=== PATIENT | female | born 2000 | race Caucasian/White ===

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

== ENCOUNTER 2019-10-26 22:36 | Emergency (ER) | payer OTHER, SELFPAY ==
[2019-10-26 22:37] VITALS: BP 126/79; PULSE 82; RESP 16; TEMP 37.1; O2SAT 100; BMI 34.7
--- NOTE | 2019-10-26 22:53 | XR_ITS ---
PROCEDURE: XR FOOT LT MIN 3V CLINICAL INDICATION: fell and injured foot COMPARISON: No exams were available for comparison FINDINGS: No fracture or dislocation. No lytic or blastic change. There is normal mineralization. The joint spaces are well-preserved. No significant degenerative/arthritic changes. No erosive changes evident. Other findings:None. IMPRESSION: No acute findings. Dictated by: Sam Montero 10/27/2019 08:11 Electronically signed by Sam Montero in [place] 10/27/2019 08:11
--- NOTE | 2019-10-26 23:18 | PC.NURSE ---
pt going for Xray
--- NOTE | 2019-10-26 23:46 | HMH.EDLOEX ---
ED Disposition Clinical Impression: Ankle sprain and strain Disposition: Home, Self-Care Condition on Discharge: Good Instructions: DI for Foot Sprain Prescriptions: Nabumetone 750 mg PO BID 10 Days #20 tab Transmission Status: Pending to [facility] Referrals: Jason Griffith MD [Primary Care Provider] - - Critical Care Critical Care Time: No Attestation: On 10/26/19, the high probability of a clinically significant, sudden or life threatening deterioration of the following system(s) required my full and direct attention, intervention and personal management. The time I documented below is in addition to time spent performing reported procedures but includes the following listed in this critical care notation. Medical Decision Making - Medical Records Medical records reviewed: Yes: I reviewed the patient's medical records. - Desmond Inquiry Pt receiving controlled substance: No Vital Signs: 10/26/19 22:37 Temperature 98.7 F Temperature Source Oral Pulse Rate [Left Radial] 82 Respiratory Rate 16 Blood Pressure [Right Arm] 126/79 Blood Pressure Mean [Right Arm] 94 Blood Pressure Source [Right Arm] Automatic Cuff Blood Pressure Position [Right Arm] Sitting 02 Sat by Pulse Oximetry 100 Oxygen Delivery Method Room Air - Lab Data Lab results reviewed: Yes: I reviewed the patient's lab results. Orders (Tests/Meds): ORDERS Category Date Time Status XR foot LT min 3V Stat Exams 10/26/19 22:53 Taken - Radiology Data #1 Image(s): Foot/Toes Image Reviewed: Yes I reviewed the patient's radiology image w/the ED provider Preliminary Findings: Normal/NAD Lower Extremity Injury HPI - General Chief Complaint: Extremity Injury, Lower Stated Complaint: AO 10/24 @ 1800 fell, injury to left foot Time Seen by Provider: 10/26/19 23:00 Mode of Arrival: Ambulatory Source of Information: Patient Limitations: No Limitations Description of Symptoms (Recalled from ER Triage Doc. by RN): pt stated she fell last night and injured her left foot. pt has an abrasion to the top of her left great toe and c/o pain when moving toes or putting pressure on said foot. - History of Present Illness HPI Narrative: A pleasant 19-year-old female presents with left foot pain. Apparently earlier today she was walking through her house and her foot got trapped underneath a table leg and it bent backwards. She is complaining of midfoot pain and she has an obvious separation over the first metatarsal. She states her pain is manageable when it is elevated and no weight is on her foot. However when she tries to ambulate it does cause acute pain. She rates his pain at a 4 out of 10 and classifies it as sharp.Patient denies any recent cough or shortness of breath, patient denies any sore throat or headache, patient denies any loss of taste or smell, patient denies any malaise or fatigue, patient denies any abdominal pain nausea vomiting or diarrhea. - Related Data Previous Rx's Medication Instructions Recorded promethazine 12.5 mg tablet 12.5 mg PO Q6H PRN 3 Days #12 tab 06/28/19 Nabumetone 750 mg PO BID 10 Days #20 tab 10/26/19 Allergies Allergy/AdvReac Type Severity Reaction Status Date / Time No Known Allergies Allergy Verified 06/28/19 18:12 [facility] History - Hepatitis A Screen Drug use history?: No High risk sexual behaviors?: No History of sexually transmitted infection?: No Currently employed?: No Childcare worker?: No Do you have indoor plumbing?: Yes Do you have electricity?: Yes Attestation statement:: This patient has been screened for Hepatitis A risk factors. I have reviewed the patient's past medical history: Yes Medical History: Reports:: Asthma Denies:: Diabetes Mellitus Type 1, Diabetes Mellitus Type 2 Other Surgeries: Yes: No Previous Surgery Comment: wisdom teeth, toe - Social History Smoking Status: Never smoker Alcohol Intake: never Occupational Status: employed H
[2019-10-27 00:17] VITALS: BP 131/82; PULSE 81; RESP 16; TEMP 36.8; O2SAT 98
== END 2019-10-27 00:18 | disposition home or self-care (01) ==
PROVIDERS: Emergency Provider Family Medicine; PCP Family Medicine
DX: S93.402A Sprain of unspecified ligament of left ankle, initial encounter (principal); W01.0XXA Fall on same level from slipping, tripping and stumbling without subsequent striking against object, initial encounter; Y92.019 Unspecified place in single-family (private) house as the place of occurrence of the external cause; J45.909 Unspecified asthma, uncomplicated
CPT/HCPCS: 73630; 99282

== ENCOUNTER → 2020-01-23 09:24 | Outpatient (CLI) | payer OTHER, SELFPAY ==
--- NOTE | 2020-01-23 09:32 | US_ITS ---
PROCEDURE: US TRANSVAGINAL CLINICAL INDICATION: IRREGULAR PERIOD COMPARISON: No exams were available for comparison FINDINGS: UTERUS: 4cm x 4cmx 3cm with a combined endometrial thickness of 6.4mm LEFT OVARY: [id number] with a volume of 8.6ml. RIGHT OVARY: [id number] with a volume of 12.7ml. No pelvic mass or abnormal fluid collection IMPRESSION: Unremarkable pelvic ultrasound. Dictated by: Az Huertas MD 01/23/2020 18:24 Az Huertas MD in [place] 01/23/2020 18:24
== END ==
PROVIDERS: PCP Family Medicine; Visit Provider Physician Assistant
DX: N92.6 Irregular menstruation, unspecified (principal)
CPT/HCPCS: 76830

== ENCOUNTER → 2020-05-03 11:28 | Outpatient (CLI) | payer OTHER, SELFPAY ==
--- NOTE | 2020-05-03 11:34 | XR_ITS ---
PROCEDURE: XR KNEE RT 3V CLINICAL INDICATION: RT MEDIAL KNEE PAIN COMPARISON: No exams were available for comparison FINDINGS: No fracture or dislocation. No lytic or blastic change. There is normal mineralization. The joint spaces are well-preserved. No significant degenerative/arthritic changes. No erosive changes evident. Other findings:None. IMPRESSION: No acute findings. Dictated by: Dr. Sundeep Parra MD 05/03/2020 11:56 Dr. Sundeep Parra MD in [place] 05/03/2020 11:56
== END ==
PROVIDERS: PCP Family Medicine; Visit Provider Physician Assistant
DX: M25.561 Pain in right knee (principal)
CPT/HCPCS: 73562

== ENCOUNTER → 2020-05-30 07:42 | Outpatient (CLI) | payer OTHER, SELFPAY ==
--- NOTE | 2020-05-30 07:46 | MR_ITS ---
PROCEDURE: MR KNEE RT WO CON Referring Doctor: Mayda Gamez Patient Age:19Y CLINICAL INDICATION: MEDIAL KNEE PAIN. Medial knee pain pain to the touch. Knee instability. Intermittent knee pain with bending and extending + COMPARISON: No exams were available for comparison TECHNIQUE: Multiplanar multisequence on 1.5 anamaria MR. No IV contrast. FINDINGS: No prominent findings. Minor observations Patellofemoral joint-on the sagittal as well as axial images there is some varying signal noted at the cartilage posterior patella which could reflect some chondromalacia patella or some mild chondral edema. Of for example note slight relative increased signal in cartilage at mid mid and medial aspect of patella on axial image 8, and superior and inferior patella sagittal image 12.. This observation requires clinical correlation required as to significance. Medial compartment: Cartilage seems to be well maintained with no osteochondral defects. Only question borderline slight thinning of cartilage at medial tibial plateau Medial meniscus-relatively small anterior horn of the medial meniscus, but I see no discrete anterior meniscal tear or fragment. Initially question possible subtle truncation of the small body of medial meniscus on coronal T1 weighted images coronal image 17., but this does not appear to be the case on T2 weighted images Lateral compartment: Lateral compartment well maintained. Subtle varying signal at the cartilage at the lateral tibial plateau-nonspecific but could reflect some very mild chondral edema, sagittal image 8 coronal image or 17 Lateral meniscus intact with no meniscal tear. Only note upper normal signal at the posterior meniscal root of lateral meniscus. . Medial collateral ligament intact. No edema here nor overlying the medial joint space. . Lateral collateral ligament intact ACL thin but appears intact. Intact. PCL slightly undulating appearance but I believe intact with upper normal signal at the superior aspect of PCL Minimal joint fluid most evident at central and also noted overlying anterior lateral aspect of lateral compartment. History states pain is medial . IMPRESSION: 1.. The no prominent findings minor observations 2..Mild signal variations of the cartilage posterior patella-could reflect some mild chondral edema here or chondromalacia patella.. . . No discrete osteochondral defects 3. ACL thin but intact. 4..Slight undulation PCL but overall appears intact, with upper normal signal at its superior aspect 5. No discrete meniscal tear: . Medial meniscus with a small anterior horn and slightly small body but I see no discrete tear. . Dictated by: Hari Patton MD 06/04/2020 08:18 Hari Patton MD in [place] 06/04/2020 08:18
== END ==
PROVIDERS: PCP Family Medicine; Visit Provider Physician Assistant
DX: M25.561 Pain in right knee (principal)
CPT/HCPCS: 73721

== ENCOUNTER 2020-06-25 16:48 | Outpatient (RCR) | payer OTHER, SELFPAY ==
--- NOTE | 2020-06-25 17:39 | HMH.PTOPEV ---
PT Outpatient Evaluation Rehab PT Outpatient Evaluation Start: 06/25/20 17:00 Freq: Status: Active Protocol: Document 06/25/20 17:12 LORETA (Rec: 06/25/20 17:39 LORETA [id number]) Electronically Signed By Balwinder Aldana, PT 06/25/20 17:12 Outpatient Therapy Subjective History Subjective History This is the initial Physical Therapy evaluation for Guille Hernandes. Pt is a 20 y/o female referred to PT for c/o R knee pain. Pt reports she began having clicking in her knee middle of last year when she squatted down. Pt report pain did not start until end of last year . Pt does feel like her knee is unstable and woud give out, but also notes that every once in a while it catches or locks. Chief Complaint Pain,Clicks,Swelling,Gives out /Unstable,Weakness Symptom Type Ache,Throb,Sharp,Dull Hip/Knee Eval Gait Observation General Gait Pattern Observation No Deviations/Normal Assistive Device Assistive Devices None / NA Palpation Tenderness right Knee Palpation Finding Tenderness Knee Palpation Overall Comment TTP medial joint line, and post patella medial side MMT Hip Abduction Strength Grade 4 Good Hip Adduction Strength Grade 4 Good Hip Extension Strength Grade 4 Good Hip External Rotation Strength Grade 4 Good Hip Internal Rotation Strength Grade 4 Good Knee Extension Strength Grade 4 Good Knee Flexion Strength Grade 4 Good ROM Hip ROM Reason Not Measured Within Functional Limits Knee ROM Reason Not Measured Within Functional Limits Special Tests Knee Apley Compression Test Negative Right Knee Anterior Drawer Test Negative Right Knee Bounce Home Test Negative Right Knee Anterior Wei Test Negative Right Knee [place] Test Positive Right Patellar Grind Test Positive Right Patella Houghston's Plica Test Negative Right Outpatient Therapy Assessment Impairments Problems/Impairmments Palpation Tenderness,Impaired Strength,Impaired Walking, Impaired Household Care, Impaired Stair Climbing, Impaired Squatting,Impaired Recreational Activities, Impaired Work Activities, Subjective C/O Pain,Impaired
== END 2020-06-25 16:50 | disposition home or self-care (01) ==
LOC: PT 16:48
PROVIDERS: PCP Family Medicine; Visit Provider Physician Assistant
DX: M25.561 Pain in right knee (principal)
CPT/HCPCS: 97110; 97163

== ENCOUNTER → 2020-12-04 20:58 | Outpatient (CLI) | payer OTHER, SELFPAY | PROVIDERS: Visit Provider Nurse Practitioner Family | DX: Z11.52 Encounter for screening for COVID-19 (principal) | CPT/HCPCS: U0003 ==

== ENCOUNTER 2020-12-09 12:55 | Emergency (ER) | payer OTHER, SELFPAY ==
[2020-12-09 13:15] VITALS: BP 132/88; PULSE 94; RESP 21; TEMP 37.4; O2SAT 99; BMI 34.4
--- NOTE | 2020-12-09 13:46 | HMH.EDUTC ---
[facility] [place] Disposition Clinical Impression: Strep throat, COVID-19 virus test result unknown Disposition: Home, Self-Care Condition on Discharge: Good Instructions: DI for Strep Throat, DI for COVID-19 (Suspected or Confirmed ) Additional Instructions: Start antibiotics today be sure to take it as ordered with the full length of time although you should start feeling better in 24-48 hours. Change toothbrush and toothpaste 24-48 hours after starting antibiotics Tylenol or Motrin as needed for fever or pain Encourage fluids, water, Gatorade, Powerade, try cold fluids, popsicles, ice cream will make it feel better You are contagious for 24 hours. Avoid kissing anyone, no eating or drinking after anyone. You are contagious. Follow-up the ER for new or worsening symptoms or no noticeable improvement over the next 24-48 hours. Follow-up with PCP this week. covid swab was sent to lab, call later today for results. self isolate until test results are known to be negative Prescriptions: Azithromycin [Zithromax 250mg tab] 250 mg PO DIRECTED #6 tab Prescription Printed Referrals: Jason Griffith MD [Primary Care Provider] - Forms: Work/School Release Time of Disposition: 13:50 Medical Decision Making - Desmond Inquiry Pt receiving controlled substance: No Orders (Tests/Meds): ORDERS Category Date Time Status Full Resp Panel w/COVID ([facility]) Routine Lab 12/09/20 13:32 Ordered [facility] [place] HPI - General Chief complaint: [facility] Stated complaint: fever, sore throat, headache Time Seen by Provider: 12/09/20 13:46 Mode of Arrival: Ambulatory Source of Information: Patient Limitations: No Limitations - History of Present Illness Provider Complaint: 20 yr old female presents for sore throat,nasal congestion, sinus pressure and headache. - Related Data Previous Rx's Medication Instructions Recorded Azithromycin [Zithromax 250mg 250 mg PO DIRECTED #6 tab 12/09/20 tab] Allergies Allergy/AdvReac Type Severity Reaction Status Date / Time No Known Allergies Allergy Verified 12/04/20 18:18 [facility] History - Hepatitis A Screen Attestation statement:: This patient has been screened for Hepatitis A risk factors. I have reviewed the patient's past medical history: Yes Medical History: Reports:: Asthma Denies:: Diabetes Mellitus Type 1, Diabetes Mellitus Type 2 Other Surgeries: Yes: No Previous Surgery Comment: wisdom teeth, toe - Social History Smoking Status: Never smoker Alcohol Intake: never Occupational Status: employed Housing: house Household Members: family Family Hx:: Non-contributory ROS Obtained: Yes Systems reviewed as appropriate & no additional complaints - Constitutional Constitutional: Reports system reviewed and no additional complaints, except as docu, Reports fatigue, Reports fever(s) - Eyes Eyes: Reports system reviewed and no additional complaints, except as docu, Denies blurry vision - ENT Ears, Nose, Mouth, and Throat: Reports system reviewed and no additional complaints, except as docu, Reports headache(s), Reports nasal congestion, Reports nasal discharge, Reports post nasal drip, Reports sinus pain, Reports sinus pressure, Reports sore throat - Cardiovascular Cardiovascular: Reports system reviewed and no additional complaints, except as docu, Denies chest pain - Respiratory Respiratory: Reports system reviewed and no additional complaints, except as docu, Denies shortness of breath - Gastrointestinal Gastrointestingal: Reports: system reviewed and no additional complaints, except as docu. Denies: abdominal pain - Genitourinary Female Genitourinary: Reports system reviewed and no additional complaints, except as docu - Musculoskeletal Musculoskeletal: Reports system reviewed and no additional complaints, except as docu, Denies joint pain - Integumentary/Breasts Skin/Breast: Reports system reviewed and no additional complaints, except as docu
[2020-12-09 13:50] LABS: UTC Strep Screen (Rapid) Positive (Negative)
[2020-12-09 13:51] VITALS: BP 132/88; PULSE 94; RESP 21; TEMP 37.4; O2SAT 99
[2020-12-09 14:03] LABS: Adenovirus,PCR Not Detected (NotDetected); Bordetella Pertussis Not Detected (NotDetected); Chlamydophila Pneumoniae, PCR Not Detected (NotDetected); Coronavirus 229E Not Detected (NotDetected); Coronavirus NL63 Not Detected (NotDetected); Coronavirus OC43 Not Detected (NotDetected); Coronovirus HKU1,PCR Not Detected (NotDetected); Human Metapneumovirus Not Detected (NotDetected); Influenza A, PCR Not Detected (NotDetected); Influenza AH1, 2009 Not Detected (NotDetected); Influenza AH1, PCR Not Detected (NotDetected); Influenza AH3,PCR Not Detected (NotDetected); Influenza B, PCR Not Detected (NotDetected); Mycoplasma Pneumoniae, PCR Not Detected (NotDetected); Parainfluenza 1, PCR Not Detected (NotDetected); Parainfluenza 2, PCR Not Detected (NotDetected); Parainfluenza 3, PCR Not Detected (NotDetected); Parainfluenza 4, PCR Not Detected (NotDetected); Respiratory Syncytial Virus Not Detected (NotDetected); Rhinovirus/Enterovirus Not Detected (NotDetected)
[2020-12-09 14:47] LABS: Coronavirus 19, PCR Not Detected (NotDetected); Influenza A, PCR Not Detected (NotDetected); Influenza B, PCR Not Detected (NotDetected)
== END 2020-12-09 13:54 | disposition home or self-care (01) ==
PROVIDERS: Emergency Provider Nurse Practitioner Family; PCP Family Medicine
DX: J02.0 Streptococcal pharyngitis (principal)
CPT/HCPCS: 87486; 87581; 87633; 87798; 87880; 99203; G0463; U0003

== ENCOUNTER 2021-01-04 16:52 | Emergency (ER) | payer OTHER, SELFPAY ==
[2021-01-04 18:16] VITALS: BP 124/76; PULSE 100; RESP 18; TEMP 37.1; O2SAT 100; BMI 34.2
--- NOTE | 2021-01-04 18:29 | HMH.EDUTC ---
[facility] [place] Clinical Impression: Viral syndrome Serous otitis media Qualifiers: Chronicity: unspecified Laterality: bilateral Qualified Code(s): H65.93 - Unspecified nonsuppurative otitis media, bilateral Disposition: Home, Self-Care Condition on Discharge: Good Instructions: DI for Viral Syndrome, Dizziness, Nonvertigo Prescriptions: Pseudoephedrine HCl 30 mg PO Q6HP PRN #30 tab PRN Reason: Congestion Transmission Status: Received by [facility] methylPREDNISolone [Medrol] 4 mg PO DIRECTED 6 Days #21 packet Transmission Status: Received by [facility] Ondansetron [Zofran 4mg ODT] 4 mg PO DAILYP PRN #12 tab PRN Reason: Nausea Transmission Status: Received by [facility] Referrals: Jason Griffith MD [Primary Care Provider] - Forms: Work/School Release Time of Disposition: 19:01 Medical Decision Making - Medical Records Medical records reviewed: No: I reviewed the patient's medical records. - Desmond Inquiry Pt receiving controlled substance: No Vital Signs: 01/04/21 18:16 01/04/21 19:03 Temperature 98.8 F 98.8 F Temperature Source Oral Pulse Rate 100 H Pulse Rate [Right Radial] 100 H Respiratory Rate 18 18 Blood Pressure 124/76 Blood Pressure [Right Arm] 124/76 Blood Pressure Mean [Right Arm] 92 Blood Pressure Source [Right Arm] Automatic Cuff Blood Pressure Position [Right Arm] Sitting 02 Sat by Pulse Oximetry 100 Oxygen Delivery Method Room Air Room Air Orders (Tests/Meds): ORDERS Category Date Time Status Covid-19 Nasal PCR ([facility]) Routine Lab 01/04/21 18:45 Received [facility] [place] HPI - General Stated complaint: GIL, nausea, dizzy Time Seen by Provider: 01/04/21 18:29 Mode of Arrival: Ambulatory Source of Information: Patient Limitations: No Limitations Description of Symptoms (Recalled from Triage Doc. by RN): C/O lightheadedness and dizziness associated with nausea, weakness and muscle soreness since approx noon yesterday. HEENT Symptoms (Recalled from RN notes): Yes (GIL, lightheaded, dizzy) Resp Symptoms (Recalled from RN notes): No Skin Symptoms (Recalled from RN notes): No MS Symptoms (Recalled from RN notes): No Functional Status (Recalled from RN notes): n/a - History of Present Illness Provider Complaint: She reports that for the past 2 days she has had lightheadness and dizzines. Her symptoms are worse when she is standing up or moving around a lot. She denies any fever/chills. She has had the first shot of the Pfizer covid vaccine. - Related Data Previous Rx's Medication Instructions Recorded Azithromycin [Zithromax 250mg 250 mg PO DIRECTED #6 tab 12/09/20 tab] Ondansetron [Zofran 4mg ODT] 4 mg PO DAILYP PRN #12 tab 01/04/21 Pseudoephedrine HCl 30 mg PO Q6HP PRN #30 tab 01/04/21 methylPREDNISolone [Medrol] 4 mg PO DIRECTED 6 Days #21 01/04/21 packet Allergies Allergy/AdvReac Type Severity Reaction Status Date / Time No Known Allergies Allergy Verified 12/04/20 18:18 - Worker's Comp Is this a Worker's Comp case?: No [facility] History - Hepatitis A Screen Drug use history?: No High risk sexual behaviors?: No History of sexually transmitted infection?: No Currently employed?: No Childcare worker?: No Do you have indoor plumbing?: Yes Do you have electricity?: Yes Attestation statement:: This patient has been screened for Hepatitis A risk factors. I have reviewed the patient's past medical history: Yes Medical History: Reports:: Asthma Denies:: Diabetes Mellitus Type 1, Diabetes Mellitus Type 2 Other Surgeries: Yes: No Previous Surgery Comment: wisdom teeth, toe - Social History Smoking Status: Never smoker Alcohol Intake: never Occupational Status: employed Housing: house Household Members: family Family Hx:: Non-contributory ROS Obtained: Yes All systems reviewed & no additional complaints - Constitutional Constitutional: Denies chills, Denies fever(s), Reports poor appetite, Rep
[2021-01-04 19:03] VITALS: BP 124/76; PULSE 100; RESP 18; TEMP 37.1; O2SAT 100
[2021-01-05 21:13] LABS: UTC Strep Screen (Rapid) Negative (Negative)
--- NOTE | 2021-01-06 10:00 | PC.NURSE ---
PT NOTIFIED OF POSITIVE COVID TEST RESULTS
== END 2021-01-04 19:06 | disposition home or self-care (01) ==
PROVIDERS: Emergency Provider Nurse Practitioner Family; PCP Family Medicine
DX: U07.1 COVID-19 (principal); H65.93 Unspecified nonsuppurative otitis media, bilateral
CPT/HCPCS: 87880; 99203; G0463; U0003

== ENCOUNTER 2021-01-10 00:28 | Observation (INO) | payer OTHER, SELFPAY ==
[2021-01-10] VITALS (9 sets, daily range): BP systolic 113–153; BP diastolic 66–95; PULSE 63–93; RESP 16–18; TEMP 36.7–36.9; O2SAT 96–99; BMI 34.2; BMI 34.5
--- NOTE | 2021-01-10 00:57 | XR_ITS ---
PROCEDURE INFORMATION: Exam: XR Chest Exam date and time: 01/10/2021 12:57 AM Age: 20 years old Clinical indication: Shortness of breath; Additional info: SOA positive covid TECHNIQUE: Imaging protocol: XR of the chest. Views: 2 views. COMPARISON: CR CXR2V XR chest 2V 07/26/2018 6:45 PM FINDINGS: Lungs: Unremarkable. No consolidation. Pleural spaces: Unremarkable. No pleural effusion. No pneumothorax. Heart/Mediastinum: Unremarkable. No cardiomegaly. Bones/joints: Unremarkable. IMPRESSION: No acute findings.
[2021-01-10 01:04] LABS: Microscopic, Urine URINE MICROSCOPIC (MICROSCOPIC)
[2021-01-10 01:05] LABS: Blood, Urine 3+ (Negative); Glucose,Urine (UA) Negative (Negative); Ketones,Urine 2+ (Negative); Leukocyte Esterase,Urine TRACE (Negative); Nitrate,Urine POSITIVE (Negative); PH,Urine 6.5 (5.0-8.5); Protein,Urine 2+ (Negative); Specific Gravity, Urine 1.025 (1.005-1.030)
[2021-01-10 01:08] LABS: Bilirubin,Urine 3+ (Negative)
[2021-01-10 01:09] LABS: Appearance,Urine Turbid (Clear); Color,Urine BROWN (Yellow)
[2021-01-10 01:10] LABS: Urine Pregnancy, HCG Qual. Negative (Negative)
[2021-01-10 01:16] LABS: Basophils # 0.4 K/mm3 (0-0.2); Basophils % 3.9 % (0.1-2.0); Eosinophils % 0.3 % (0.1-12.0); Hematocrit 40.8 % (37.0-47.0); Hemoglobin 13.5 g/dL (12.2-16.2); Lymphocytes # 6.9 K/mm3 (0.7-4.5); Lymphocytes % 70.6 % (10-50); Mean Corpuscular HGB Conc 33.2 g/dL (31.8-35.4); Mean Corpuscular Hemoglobin 28.3 pg (27.0-31.2); Mean Corpuscular Volume 85.3 fl (81-99); Mean Platelet Volume 9.1 fl (7.4-10.4); Monocytes # 0.3 K/mm3 (0.1-1.0); Monocytes % 2.9 % (1.7-9.3); Neutrophils # 2.2 K/mm3 (1.8-7.8); Neutrophils % 22.3 % (37.0-80.0); Platelet Count 180 K/mm3 (142-424); Red Blood Count 4.78 M/mm3 (4.20-5.40); Red Cell Distribution Width 15.3 % (11.5-17.5); White Blood Count 9.8 K/mm3 (4.8-10.8)
[2021-01-10 01:28] LABS: Chloride 102 mmol/L (98-107); Potassium 3.4 mmoL/L (3.5-5.1); Sodium 136 mmol/L (136-145)
[2021-01-10 01:29] LABS: Amorphous Sediment,Urine 1+ /lpf; Bacteria,Urine 1+ /lpf; Mucus,Urine 1+ /lpf; Squamous Epithelial Cell,Urine Occasional #/hpf (0-5); WBC,Urine Occasional #/hpf (0-3)
[2021-01-10 01:30] LABS: Blood Urea Nitrogen 10 mg/dl (7-17); Creatinine Clearance Estimated 159 mL/min (50-200); Estimated Glomerular Filt Rate 79 ml/min (>60); GFR (African American) 96 ML/MIN (>60)
[2021-01-10 01:31] LABS: Alanine Aminotransferase 480 U/L (12-78); Albumin Level 3.9 g/dl (3.5-5.0); Albumin/Globulin Ratio 0.9 (1.1-1.8); Alkaline Phosphatase 187 U/L (38-126); Anion Gap 15.4 mEq/L (5-15); Aspartate Amino Transferase 424 U/L (14-36); Bilirubin,Total 4.4 mg/dl (0.2-1.3); Calcium 9.1 mg/dl (8.4-10.2); Carbon Dioxide 22 mmol/L (22.0-30.0); Globulin 4.2 g/dL (1.3-3.2); Glucose 98 mg/dl (74-100); MANUAL DIFFERENTIAL MANUAL DIFFERENTIAL (MANUAL DIFF); Total Protein,Serum 8.1 g/dl (6.3-8.2)
[2021-01-10 01:36] LABS: C-Reactive Protein 18.5 mg/L (0-4)
[2021-01-10 02:06] LABS: Erythrocyte Sedimentation Rate 63 mm/hr (0-20)
[2021-01-10 02:17] LABS: Procalcitonin 0.476 ng/mL (0.0-2.0)
--- NOTE | 2021-01-10 02:53 | HMH.EDURI ---
ED Disposition Clinical Impression: COVID-19, Elevated liver enzymes Disposition: Admitted as Observation Condition on Discharge: Good Referrals: Jason Griffith MD [Primary Care Provider] - - Critical Care Critical Care Time: No Attestation: On 01/10/21, the high probability of a clinically significant, sudden or life threatening deterioration of the following system(s) required my full and direct attention, intervention and personal management. The time I documented below is in addition to time spent performing reported procedures but includes the following listed in this critical care notation. Medical Decision Making - Medical Records Medical records reviewed: Yes: I reviewed the patient's medical records. - Desmond Inquiry Pt receiving controlled substance: No Vital Signs: 01/10/21 00:45 Temperature 98.0 F Temperature Source Oral Pulse Rate [Right] 93 H Respiratory Rate 18 Blood Pressure [Right Arm] 117/72 Blood Pressure Mean [Right Arm] 87 Blood Pressure Source [Right Arm] Automatic Cuff Blood Pressure Position [Right Arm] Supine 02 Sat by Pulse Oximetry 99 Oxygen Delivery Method Room Air - Lab Data Lab results reviewed: Yes: I reviewed the patient's lab results. Lab Results 01/10/21 00:51: Urine Color Brown, Urine Appearance Turbid, Urine pH 6.5, Ur Specific [place] 1.025, Urine Protein 2+, Urine Glucose (UA) Negative, Urine Ketones 2+, Urine Blood 3+, Urine Nitrate Positive, Urine Bilirubin 3+ A, Urine Urobilinogen 4.0, Ur Leukocyte Esterase Trace, Urine RBC 3-5, Urine WBC Occasional, Ur Squamous Epith Cells Occasional, Amorphous Sediment 1+, Urine Bacteria 1+, Urine Mucus 1+ 01/10/21 00:51: Urine HCG, Qual Negative 01/10/21 01:06: WBC 9.8, RBC 4.78, Hgb 13.5, Hct 40.8, MCV 85.3, MCH 28.3, MCHC 33.2, RDW 15.3, Plt Count 180, MPV 9.1, Neut % (Auto) 22.3 L, Lymph % (Auto) 70.6 H, [place] % (Auto) 2.9, Eos % (Auto) 0.3, Baso % (Auto) 3.9 H, Neut # (Auto) 2.2, Lymph # (Auto) 6.9 H, [place] # (Auto) 0.3, Eos # (Auto) 0.0, Baso # (Auto) 0.4 H, Total Counted 100, Neutrophils % (Manual) 41 L, Lymphocytes % (Manual) 59 H, Platelet Estimate Normal, RBC Morphology Normal, ESR 63 H 01/10/21 01:06: Sodium 136, Potassium 3.4 L, Chloride 102, Carbon Dioxide 22, Anion Gap 15.4 H, BUN 10, Creatinine 0.90, Estimated Creat Clear 159, Estimated GFR 79, Est GFR ( Amer) 96, Glucose 98, Calcium 9.1, Total Bilirubin 4.4 H, AST 424 H*, ALT 480 H*, Alkaline Phosphatase 187 H, C-Reactive Protein 18.5 H, Total Protein 8.1, Albumin 3.9, Globulin 4.2 H, Albumin/Globulin Ratio 0.9 L, Procalcitonin 0.476 Result diagrams: 01/10/21 01:06 01/10/21 01:06 Orders (Tests/Meds): ED MEDICATIONS Generic Name Dose Route Start Last Admin Trade Name Freq PRN Reason Stop Dose Admin Sodium Chloride 1,000 mls @ 999 mls/hr 01/10/21 01:00 01/10/21 01:09 Sod Chlor 0.9% 1000ml Bag IV 01/10/21 02:00 999 mls/hr .Q1H1M BOOM Administration Sodium Chloride 1,000 mls @ 999 mls/hr 01/10/21 03:15 01/10/21 03:16 Sod Chlor 0.9% 1000ml Bag IV 01/10/21 04:15 999 mls/hr .Q1H1M BOOM Administration Discontinued Medications Generic Name Dose Route Start Last Admin Trade Name Freq PRN Reason Stop Dose Admin Dexamethasone Sodium Phosphate 10 mg 01/10/21 01:10 01/10/21 01:12 Dexamethasone 4mg/Ml 5ml Mdv IV 01/10/21 01:11 10 mg ONCE ONE Administration Ketorolac Tromethamine 30 mg 01/10/21 00:57 01/10/21 01:09 Ketorolac 30mg/Ml Vial IV 01/10/21 00:58 30 mg ONCE ONE Administration Ondansetron HCl 4 mg 01/10/21 00:57 01/10/21 01:09 Ondansetron 4mg/2ml Vial IV 01/10/21 00:58 4 mg ONCE ONE Administration ORDERS Category Date Time Status Hepatitis Panel (4) Stat Lab 01/10/21 03:36 Ordered Urine Culture Stat Micro 01/10/21 00:51 Received - Radiology Data #1 Image(s): Chest Image Reviewed: Yes I have reviewed radiologist's interpretation Preliminary Findings: Normal/NAD - Physician C
[2021-01-10 03:07] LABS: Lymphocytes % 59 % (10-50); Neutrophils % 41 % (42-76); Platelet Estimate Normal; RBC Morphology Normal; Total Cells Counted 100
[2021-01-10 04:20] LABS: Coronavirus 19 IgG Antibody Positive (Negative); Coronavirus 19 IgM Antibody Negative (Negative)
[2021-01-10 04:29] LABS: Prothrombin Time 11.8 seconds (10.1-12.5)
--- NOTE | 2021-01-10 04:55 | PC.NURSE ---
PT ARRIVED TO FLOOR VIA W/C FROM ED W/STAFF AT [id number]
[2021-01-10 07:08] LABS: Basophils # 0.2 K/mm3 (0-0.2); Basophils % 2.5 % (0.1-2.0); Hematocrit 39.8 % (37.0-47.0); Hemoglobin 12.8 g/dL (12.2-16.2); Lymphocytes # 5.8 K/mm3 (0.7-4.5); Lymphocytes % 66.1 % (10-50); Mean Corpuscular HGB Conc 32.2 g/dL (31.8-35.4); Mean Corpuscular Hemoglobin 27.7 pg (27.0-31.2); Mean Corpuscular Volume 86.1 fl (81-99); Mean Platelet Volume 9.7 fl (7.4-10.4); Monocytes # 0.1 K/mm3 (0.1-1.0); Monocytes % 1.2 % (1.7-9.3); Neutrophils # 2.7 K/mm3 (1.8-7.8); Neutrophils % 30.2 % (37.0-80.0); Platelet Count 185 K/mm3 (142-424); Red Blood Count 4.63 M/mm3 (4.20-5.40); Red Cell Distribution Width 15.3 % (11.5-17.5); White Blood Count 8.8 K/mm3 (4.8-10.8)
[2021-01-10 07:19] LABS: Alanine Aminotransferase 486 U/L (12-78); Albumin Level 3.8 g/dl (3.5-5.0); Albumin/Globulin Ratio 0.9 (1.1-1.8); Alkaline Phosphatase 171 U/L (38-126); Anion Gap 16.1 mEq/L (5-15); Aspartate Amino Transferase 431 U/L (14-36); Bilirubin,Total 4.3 mg/dl (0.2-1.3); Blood Urea Nitrogen 9 mg/dl (7-17); Calcium 8.6 mg/dl (8.4-10.2); Carbon Dioxide 21 mmol/L (22.0-30.0); Chloride 106 mmol/L (98-107); Creatinine Clearance Estimated 182 mL/min (50-200); Estimated Glomerular Filt Rate 91 ml/min (>60); GFR (African American) 110 ML/MIN (>60); Globulin 4.2 g/dL (1.3-3.2); Glucose 124 mg/dl (74-100); Potassium 4.1 mmoL/L (3.5-5.1); Sodium 139 mmol/L (136-145)
--- NOTE | 2021-01-10 07:20 | HMH.PHAVTE ---
[facility] Pharmacy VTE Monitoring - Patient Demographics Admission date: 01/10/21 Report Date: 01/10/21 Time: 07:20 Allergies/Adverse Reactions: Patient Allergies No Known Allergies Allergy (Verified 12/04/20 18:18) Height: 1.73 m Weight: 103.419 kg Patient Problems: Current Active Problems COVID-19 (Acute) Elevated liver enzymes (Acute) - VTE Risk Labs: VTE Related Lab Results Hgb 12.8 g/dL (12.2-16.2) 01/10/21 06:14 Hct 39.8 % (37.0-47.0) 01/10/21 06:14 Plt Count 185 K/mm3 (142-424) 01/10/21 06:14 PT 11.8 seconds (10.1-12.5) 01/10/21 01:06 INR 1.00 (0.9-1.1) 01/10/21 01:06 BUN 10 mg/dl (7-17) 01/10/21 01:06 Creatinine 0.90 mg/dl (0.52-1.04) 01/10/21 01:06 Estimated Creat Clear 159 mL/min (50-200) 01/10/21 01:06 Was VTE Risk Assessment Performed: Yes VTE Risk Level: Very Low Risk Clinical Trial Participant: No - Prophylaxis VTE Prophylaxis Ordered?: Yes Types of VTE Prophylaxis: TEDS Knee High
--- NOTE | 2021-01-10 07:40 | HMH.PHAINT ---
MEDICATION RECONCILIATION COMPLETED USING PHARMACY FILL HISTORY AND RECENT OFFICE VISIT.
--- NOTE | 2021-01-10 14:31 | P.PN_ITS ---
Internal Medicine - PN: Subj *Date: 01/10/21 *Time: 14:31 Interval history: Pt admitted with Covid and elevated LFTs and dehydration due to vomiting. She feels much today and is tolerating a regular diet. She is anxious to go home. Exam Vital signs and Labs for Last 24 Hours: Temp Pulse Resp BP Pulse Ox 98.4 F 69 18 129/70 98 01/10/21 12:00 01/10/21 12:00 01/10/21 12:00 01/10/21 12:00 01/10/21 12:00 Laboratory Results - last 24 hr 01/10/21 00:51: Urine Color Brown, Urine Appearance Turbid, Urine pH 6.5, Ur Specific [place] 1.025, Urine Protein 2+, Urine Glucose (UA) Negative, Urine Ketones 2+, Urine Blood 3+, Urine Nitrate Positive, Urine Bilirubin 3+ A, Urine Urobilinogen 4.0, Ur Leukocyte Esterase Trace, Urine RBC 3-5, Urine WBC Occasional, Ur Squamous Epith Cells Occasional, Amorphous Sediment 1+, Urine Bacteria 1+, Urine Mucus 1+ 01/10/21 00:51: Urine HCG, Qual Negative 01/10/21 01:06: WBC 9.8, RBC 4.78, Hgb 13.5, Hct 40.8, MCV 85.3, MCH 28.3, MCHC 33.2, RDW 15.3, Plt Count 180, MPV 9.1, Neut % (Auto) 22.3 L, Lymph % (Auto) 70.6 H, [place] % (Auto) 2.9, Eos % (Auto) 0.3, Baso % (Auto) 3.9 H, Neut # (Auto) 2.2, Lymph # (Auto) 6.9 H, [place] # (Auto) 0.3, Eos # (Auto) 0.0, Baso # (Auto) 0.4 H, Total Counted 100, Neutrophils % (Manual) 41 L, Lymphocytes % (Manual) 59 H, Platelet Estimate Normal, RBC Morphology Normal, ESR 63 H 01/10/21 01:06: Sodium 136, Potassium 3.4 L, Chloride 102, Carbon Dioxide 22, Anion Gap 15.4 H, BUN 10, Creatinine 0.90, Estimated Creat Clear 159, Estimated GFR 79, Est GFR ( Amer) 96, Glucose 98, Calcium 9.1, Total Bilirubin 4.4 H, AST 424 H*, ALT 480 H*, Alkaline Phosphatase 187 H, C-Reactive Protein 18.5 H , Total Protein 8.1, Albumin 3.9, Globulin 4.2 H, Albumin/Globulin Ratio 0.9 L, Procalcitonin 0.476 01/10/21 01:06: SARS-CoV-2 IgG Ab (Rapid) Positive A, SARS-CoV-2 IgM Ab (Rapid) Negative 01/10/21 01:06: PT 11.8, INR 1.00 01/10/21 06:14: WBC 8.8, RBC 4.63, Hgb 12.8, Hct 39.8, MCV 86.1, MCH 27.7, MCHC 32.2, RDW 15.3, Plt Count 185, MPV 9.7, Neut % (Auto) 30.2 L, Lymph % (Auto) 66.1 H, [place] % (Auto) 1.2 L, Eos % (Auto) 0.0 L, Baso % (Auto) 2.5 H, Neut # (Auto) 2.7, Lymph # (Auto) 5.8 H, [place] # (Auto) 0.1, Eos # (Auto) 0.0, Baso # (Auto) 0.2 01/10/21 06:14: Sodium 139, Potassium 4.1 D, Chloride 106, Carbon Dioxide 21 L, Anion Gap 16.1 H, BUN 9, Creatinine 0.80, Estimated Creat Clear 182, Estimated GFR 91, Est GFR ( Amer) 110, Glucose 124 H D, Calcium 8.6, Magnesium 2.0, Total Bilirubin 4.3 H, AST 431 H*, ALT 486 H*, Alkaline Phosphatase 171 H, Total Protein 8.0, Albumin 3.8, Globulin 4.2 H, Albumin/Globulin Ratio 0.9 L I & O for Last 24 hours: Intake & Output 01/07/21 01/08/21 01/09/21 01/10/21 23:59 23:59 23:59 23:59 Intake Total 2119 Balance 2119 Weight 228 lb - Constitutional no acute distress - *Routine Abdominal Exam Present: soft, normoactive bowel sounds, tenderness (minimal RUQ). Absent: guarding, rigid Assessment and Plan (1) Vomiting Status: Acute Category: Medical Code(s): R11.10 - Vomiting, unspecified (2) COVID-19 Status: Acute Category: Medical Code(s): U07.1 - COVID-19 (3) Elevated liver enzymes Status: Acute Category: Medical Code(s): R74.8 - Abnormal levels of other serum enzymes - Assessment and plan all Dx Assessment and Plan for all problems:: Plan discharge home with [place], recheck CMP on 01/14
--- NOTE | 2021-01-10 14:53 | HMH.HPDC ---
General - General Admission date:: 01/10/21 Discharge date: 01/10/21 *Admission Date: 01/10/21 *Chief complaint: vomiting, abdominal pain *History of present illness: Ms. Hernandes is a 20-year-old female with a history of allergies. She states she has had one Covid vaccine back at the first of the year, but never did get her second vaccine. She states she began feeling poorly last week. She had vomiting and nausea and felt extremely weak. She went to the urgent treatment center on 01/04/2021 due to feeling poorly and tested positive for Covid. She was started on Sudafed and a Medrol Dosepak along with Zofran. She states she continued to feel poorly and would get lightheaded and dizzy. She denied any fever. She states she was worried she was getting dehydrated, which is why she presented to the emergency room today. She has had a mild cough but no other respiratory symptoms. Her potassium was slightly low but her liver function tests were elevated. Her bilirubin was 4.4 her, her AST was 424, and her ALT was 480. She was admitted for further evaluation and treatment of her elevated liver tests. Of note, her urine also appeared to show urinary tract infection. She was started on IV fluids and Zofran. [facility] History I have reviewed the patient's past medical history: Yes Medical History: Reports:: Asthma Denies:: Cancer, Diabetes Mellitus Type 1, Diabetes Mellitus Type 2, MRSA *Have you ever received a pneumonia vaccine?: Yes *Have you received a flu vaccine this season?: Yes Other Surgeries: Yes: No Previous Surgery - *Social History Last grade of school completed: Some college Smoking Status: Never smoker Alcohol Intake: current Alcohol Intake Frequency:: holidays/special occasions only *Occupational Status:: employed Housing: house Household Members: family *Travel in the last 8 weeks: None Family Hx:: No significant family history Review of Systems - Constitutional Reports fatigue, Reports malaise, Reports weakness, Denies fever(s) - Eyes Denies blurry vision, Denies double vision - ENT Reports nasal congestion, Denies sore throat - *Cardiovascular Denies chest pain, Denies shortness of breath - *Respiratory Reports cough, Denies chest congestion, Denies shortness of breath - *Gastrointestinal Reports abdominal pain, Reports nausea, Reports vomiting, Denies loose stools - *Genitourinary Denies difficulty urinating, Denies painful urination - *Musculoskeletal Denies joint pain, Denies body aches - *Neurologic Reports weakness, Denies localized weakness, Denies headache(s), Denies seizure-like activity Exam Vital signs and Labs for Last 24 Hours: Temp Pulse Resp BP Pulse Ox 98.4 F 69 18 129/70 98 01/10/21 12:00 01/10/21 12:00 01/10/21 12:00 01/10/21 12:00 01/10/21 12:00 Laboratory Results - last 24 hr 01/10/21 00:51: Urine Color Brown, Urine Appearance Turbid, Urine pH 6.5, Ur Specific [place] 1.025, Urine Protein 2+, Urine Glucose (UA) Negative, Urine Ketones 2+, Urine Blood 3+, Urine Nitrate Positive, Urine Bilirubin 3+ A, Urine Urobilinogen 4.0, Ur Leukocyte Esterase Trace, Urine RBC 3-5, Urine WBC Occasional, Ur Squamous Epith Cells Occasional, Amorphous Sediment 1+, Urine Bacteria 1+, Urine Mucus 1+ 01/10/21 00:51: Urine HCG, Qual Negative 01/10/21 01:06: WBC 9.8, RBC 4.78, Hgb 13.5, Hct 40.8, MCV 85.3, MCH 28.3, MCHC 33.2, RDW 15.3, Plt Count 180, MPV 9.1, Neut % (Auto) 22.3 L, Lymph % (Auto) 70.6 H, [place] % (Auto) 2.9, Eos % (Auto) 0.3, Baso % (Auto) 3.9 H, Neut # (Auto) 2.2, Lymph # (Auto) 6.9 H, [place] # (Auto) 0.3, Eos # (Auto) 0.0, Baso # (Auto) 0.4 H, Total Counted 100, Neutrophils % (Manual) 41 L, Lymphocytes % (Manual) 59 H, Platelet Estimate Normal, RBC Morphology Normal, ESR 63 H 01/10/21 01:06: Sodium 136, Potassium 3.4 L, Chloride 102, Carbon Dioxide 22, Anion Gap 15.4 H, BUN 10, Creatinine 0.90, Estimated Creat Clear 159, Estimated GFR 79, Est GFR ( Amer) 96, Glucose 98, Matthew
[2021-01-11 12:19] LABS: Hep A Ab, IgM Negative (Negative); Hepatitis B Core Antibody IgM Negative (Negative); Hepatitis B Surface Antigen Negative (Negative); Hepatitis C Antibody <0.1 s/co ratio (0.0-0.9)
== END 2021-01-10 15:10 | disposition home or self-care (01) ==
LOC: ER 03:51 → 2ND 04:50
PROVIDERS: Admitting Provider Family Medicine; Emergency Provider Emergency Medicine; PCP Family Medicine; Visit Provider Family Medicine
DX: U07.1 COVID-19 (principal); R11.10 Vomiting, unspecified; R74.8 Abnormal levels of other serum enzymes
CPT/HCPCS: 71046; 80053; 80074; 81001; 81025; 83735; 84145; 85007; 85025; 85610; 85651; 86140; 86328; 87086; 87088; 87186; 96365; 96367; 96375; 99284; G0378; J2405

== ENCOUNTER → 2021-01-14 10:24 | Outpatient (CLI) | payer OTHER, SELFPAY ==
[2021-01-14 12:28] LABS: Alanine Aminotransferase 412 U/L (12-78); Albumin/Globulin Ratio 0.8 (1.1-1.8); Alkaline Phosphatase 237 U/L (38-126); Anion Gap 15.9 mEq/L (5-15); Aspartate Amino Transferase 308 U/L (14-36); Bilirubin,Total 2.2 mg/dl (0.2-1.3); Blood Urea Nitrogen 7 mg/dl (7-17); Calcium 9.3 mg/dl (8.4-10.2); Carbon Dioxide 25 mmol/L (22.0-30.0); Chloride 103 mmol/L (98-107); Estimated Glomerular Filt Rate 91 ml/min (>60); GFR (African American) 110 ML/MIN (>60); Globulin 4.9 g/dL (1.3-3.2); Glucose 123 mg/dl (74-100); Potassium 3.9 mmoL/L (3.5-5.1); Sodium 140 mmol/L (136-145); Total Protein,Serum 8.9 g/dl (6.3-8.2)
== END ==
PROVIDERS: Visit Provider Family Medicine
DX: R74.8 Abnormal levels of other serum enzymes (principal)
CPT/HCPCS: 36415; 80053

== ENCOUNTER → 2021-05-04 17:23 | Outpatient (CLI) | payer OTHER, SELFPAY | PROVIDERS: PCP Family Medicine; Visit Provider Nurse Practitioner Family | DX: Z20.822 Contact with and (suspected) exposure to COVID-19 (principal) | CPT/HCPCS: C9803; U0003; U0005 ==

== ENCOUNTER 2021-05-07 17:20 | Emergency (ER) | payer OTHER, SELFPAY ==
[2021-05-07 18:05] VITALS: BP 136/89; PULSE 89; RESP 18; TEMP 37; O2SAT 99; BMI 34.2
[2021-05-07 18:34] LABS: UTC Strep Screen (Rapid) Positive (Negative)
--- NOTE | 2021-05-07 18:34 | HMH.EDUTC ---
[facility] [place] Disposition Clinical Impression: Strep throat Disposition: Home, Self-Care Condition on Discharge: Good Instructions: DI for Strep Throat, Strep Throat Additional Instructions: *Monitor Temp, Over the counter Motrin or Tylenol as directed/as needed Tylenol every 4 hours and Motrin every 6 hours (as long as your family doctor has told you that you can take it) for fever or pain. and straight to ER if unable to lower temp less than 101.0 after medication given *Warm salt water gargles may help to soothe the throat *Throat Lozenges *Warm fluids like tea with honey may help to soothe the throat *Sleep elevated *Humidifier/Vaporizer *If you did not take Penicillin shot or was unable to, start taking antibiotic immediately and make sure that you take it for the FULL length of time although you should start to feel better in 24-48 hours *change toothbrush and toothpaste 24-48 hours after starting to take antibiotics so you do not reinfect yourself Monitor Temp. Tylenol and/or Ibuprofen as needed. ER if fever is no less than 101 despite alternating Tylenol and Ibuprofen * Encourage fluids, water, Gatorade, powerade, pedialyte if infant/toddler/or child *Cold fluids, popsicles and ice cream may feel good on his throat Follow up IMMEDIATELY for new or worsening symptoms or no Noticeable improvement over the next 48-72 hours. 911 for difficulty breathing or swallowing Prescriptions: Amoxicillin [Amoxicillin 875MG Tab] 875 mg PO Q12H #20 tab Transmission Status: Pending to [facility] Fluticasone Propionate [Flonase 50mcg nasal spray 16gm] 1 spr NS DAILY #1 each Transmission Status: Pending to [facility] methylPREDNISolone [Medrol 4mg tab] 4 mg PO DIRECTED #21 tab Transmission Status: Pending to [facility] Referrals: Jason Griffith MD [Primary Care Provider] - As needed Forms: Work/School Release Time of Disposition: 18:44 Medical Decision Making - Desmond Inquiry Pt receiving controlled substance: No Desmond was queried for this patient: No Vital Signs: 05/07/21 18:05 Temperature 98.6 F Temperature Source Oral Pulse Rate [Right Brachial] 89 Respiratory Rate 18 Blood Pressure [Right Arm] 136/89 Blood Pressure Mean [Right Arm] 104 Blood Pressure Source [Right Arm] Automatic Cuff Blood Pressure Position [Right Arm] Sitting 02 Sat by Pulse Oximetry 99 Oxygen Delivery Method Room Air - Lab Data Lab results reviewed: Yes: I reviewed the patient's lab results. [facility] [place] HPI - General Stated complaint: fever,sore throat, GIL,Congestion Time Seen by Provider: 05/07/21 18:34 Mode of Arrival: Ambulatory Source of Information: Patient Limitations: No Limitations Description of Symptoms (Recalled from Triage Doc. by RN): PATIENT C/O COUGH, SORE THROAT, HEADACHE, EAR PAIN, INTERMITTEN FEVER, CONGESTION AND RUNNY NOSE THAT STARTED THURSDAY HEENT Symptoms (Recalled from RN notes): Yes Resp Symptoms (Recalled from RN notes): Yes Skin Symptoms (Recalled from RN notes): No MS Symptoms (Recalled from RN notes): No Functional Status (Recalled from RN notes): WNL - History of Present Illness Provider Complaint: Patient states that she has been having sore throat, pressure and pain in her ears, headache fever earlier and cough state that she feels like she has cotton stuck in her ears States that this evening they was popping and cracking and her throat was hurting worse so she came in to get checked out - Related Data Previous Rx's Medication Instructions Recorded Amoxicillin [Amoxicillin 875MG 875 mg PO Q12H #20 tab 05/07/21 Tab] Fluticasone Propionate [Flonase 1 spr NS DAILY #1 each 05/07/21 50mcg nasal spray 16gm] methylPREDNISolone [Medrol 4mg 4 mg PO DIRECTED #21 tab 05/07/21 tab] Allergies Allergy/AdvReac Type Severity Reaction Status Date / Time No Known Allergies Allergy Verified 12/04/20 18:18 - Worker's Comp Is this a Worker's Comp case?: No
[2021-05-07 18:47] VITALS: BP 136/89; PULSE 89; RESP 18; TEMP 37; O2SAT 99
== END 2021-05-07 18:52 | disposition home or self-care (01) ==
PROVIDERS: Emergency Provider Nurse Practitioner; PCP Family Medicine
DX: J02.0 Streptococcal pharyngitis (principal)
CPT/HCPCS: 87880; 99202; G0463

== ENCOUNTER → 2021-05-20 10:34 | Outpatient (CLI) | payer OTHER, SELFPAY | PROVIDERS: PCP Family Medicine; Visit Provider Nurse Practitioner | DX: Z20.822 Contact with and (suspected) exposure to COVID-19 (principal) | CPT/HCPCS: C9803; U0003; U0005 ==

== ENCOUNTER → 2021-05-22 19:41 | Outpatient (CLI) | payer OTHER, SELFPAY | PROVIDERS: Visit Provider Nurse Practitioner Family | DX: U07.1 COVID-19 (principal) | CPT/HCPCS: C9803; U0003; U0005 ==

== ENCOUNTER 2021-08-04 20:12 | Emergency (ER) | payer OTHER, SELFPAY ==
[2021-08-04 20:15] VITALS: BP 141/71; PULSE 85; RESP 19; TEMP 36.8; O2SAT 98; BMI 35.9
--- NOTE | 2021-08-04 20:29 | HMH.EDUTC ---
[facility] [place] Disposition Clinical Impression: URI (upper respiratory infection) Qualifiers: URI type: unspecified viral URI Qualified Code(s): J06.9 - Acute upper respiratory infection, unspecified Disposition: Home, Self-Care Condition on Discharge: Good Instructions: DI for Viral Upper Respiratory Infection -- Adult Additional Instructions: No sign of a bacterial infection. Likely viral. Viruses can take 7-14 days to run their course. Nasal saline and bulb syringe or nose Celia to remove nasal drainage to help with nasal congestion. Hard to eat, drink, sleep with nasal congestion so important to keep this cleaned out. Monitor temp. Tylenol or Motrin as needed for pain or fever Encourage fluids, water, Gatorade, Powerade, Pedialyte if /toddler/child Warm salt water gargles Warm fluids Sore throat lozenges Sleep elevated Humidifier/vaporizer Follow-up immediately for new or worsening symptoms or no noticeable improvement over the next 48-72 hours. Referrals: Jason Griffith MD [Primary Care Provider] - Forms: Work/School Release Time of Disposition: 20:53 Medical Decision Making - Desmond Inquiry Pt receiving controlled substance: No Vital Signs: 08/04/21 20:15 Temperature 98.3 F Temperature Source Oral Pulse Rate [Right Brachial] 85 Respiratory Rate 19 Blood Pressure [Right Arm] 141/71 H Blood Pressure Mean [Right Arm] 94 Blood Pressure Source [Right Arm] Automatic Cuff Blood Pressure Position [Right Arm] Sitting 02 Sat by Pulse Oximetry 98 Oxygen Delivery Method Room Air - Lab Data Lab Results 08/04/21 20:20: Group A Strep Rapid Negative 08/04/21 20:23: Influenza Type A Ag Negative, Influenza Type B Ag Negative Orders (Tests/Meds): ORDERS Category Date Time Status Strep Screen Confirmation Stat Micro 08/04/21 20:20 Received [facility] [place] HPI - General Chief complaint: Urgent Treatment Center Stated complaint: sore throat,cough Time Seen by Provider: 08/04/21 20:29 Mode of Arrival: Ambulatory Source of Information: Patient Limitations: No Limitations Description of Symptoms (Recalled from Triage Doc. by RN): PATIENT C/O SORE THROAT, COUGH, CHILLS AND BODY ACHES X 3 DAYS HEENT Symptoms (Recalled from RN notes): Yes Resp Symptoms (Recalled from RN notes): Yes Skin Symptoms (Recalled from RN notes): No MS Symptoms (Recalled from RN notes): Yes Functional Status (Recalled from RN notes): WNL - History of Present Illness Provider Complaint: 21 yr old female presents for sore throat,cough,body aches and fever - Related Data Previous Rx's Medication Instructions Recorded Fluticasone Propionate [Flonase 1 spr NS DAILY #1 each 05/07/21 50mcg nasal spray 16gm] Allergies Allergy/AdvReac Type Severity Reaction Status Date / Time No Known Allergies Allergy Verified 05/22/21 18:48 - Worker's Comp Is this a Worker's Comp case?: No [facility] History - Hepatitis A Screen Drug use history?: No High risk sexual behaviors?: No History of sexually transmitted infection?: No Currently employed?: No Childcare worker?: No Do you have indoor plumbing?: Yes Do you have electricity?: Yes Attestation statement:: This patient has been screened for Hepatitis A risk factors. I have reviewed the patient's past medical history: Yes Medical History: Reports:: Asthma Denies:: Cancer, Diabetes Mellitus Type 1, Diabetes Mellitus Type 2, MRSA Other Surgeries: Yes: No Previous Surgery Comment: wisdom teeth, toe - Social History Smoking Status: Never smoker Alcohol Intake: current Alcohol Intake Frequency:: holidays/special occasions only Occupational Status: employed Housing: house Household Members: family Family Hx:: No significant family history ROS Obtained: Yes Systems reviewed as appropriate & no additional complaints - Constitutional Constitutional: Reports system reviewed and no additional complaints, except as docu, Reports body ache, Reports chills, Reports fever(s) - Eyes
[2021-08-04 20:42] LABS: UTC Influenza A Antigen Negative (Negative); UTC Influenza B Antigen Negative (Negative)
[2021-08-04 20:44] LABS: Strep Scrn Group A (Rapid) Negative (Negative)
[2021-08-04 20:55] VITALS: BP 141/71; PULSE 85; RESP 19; TEMP 36.8; O2SAT 98
== END 2021-08-04 21:00 | disposition home or self-care (01) ==
PROVIDERS: Emergency Provider Nurse Practitioner Family; PCP Family Medicine
DX: J06.9 Acute upper respiratory infection, unspecified (principal); J45.909 Unspecified asthma, uncomplicated; Z79.51 Long term (current) use of inhaled steroids
CPT/HCPCS: 87430; 87804; 99212; G0463

== ENCOUNTER 2021-09-23 11:18 | Emergency (ER) | payer OTHER, SELFPAY ==
[2021-09-23 13:12] LABS: Adenovirus,PCR Not Detected (NotDetected); Bordetella Pertussis Not Detected (NotDetected); Chlamydophila Pneumoniae, PCR Not Detected (NotDetected); Coronavirus 19, PCR Not Detected (NotDetected); Coronavirus 229E Not Detected (NotDetected); Coronavirus NL63 Not Detected (NotDetected); Coronavirus OC43 Not Detected (NotDetected); Coronovirus HKU1,PCR Not Detected (NotDetected); Influenza A, PCR Not Detected (NotDetected); Influenza AH1, 2009 Not Detected (NotDetected); Influenza AH1, PCR Not Detected (NotDetected); Influenza AH3,PCR Not Detected (NotDetected); Influenza B, PCR Not Detected (NotDetected); Mycoplasma Pneumoniae, PCR Not Detected (NotDetected); Parainfluenza 1, PCR Not Detected (NotDetected); Parainfluenza 2, PCR Not Detected (NotDetected); Parainfluenza 3, PCR Not Detected (NotDetected); Parainfluenza 4, PCR Not Detected (NotDetected); Rhinovirus/Enterovirus Not Detected (NotDetected)
[2021-09-23 13:13] VITALS: BP 131/79; PULSE 81; RESP 19; TEMP 37.2; O2SAT 100; BMI 12.3
--- NOTE | 2021-09-23 13:18 | HMH.EDUTC ---
[facility] [place] Disposition Clinical Impression: Otitis media Qualifiers: Otitis media type: unspecified Laterality: left Qualified Code(s): H66.92 - Otitis media, unspecified, left ear Disposition: Home, Self-Care Condition on Discharge: Good Instructions: Sore Throat, Middle Ear Infection, DI for Sinusitis Additional Instructions: *Monitor Temp, Over the counter Motrin or Tylenol as directed/as needed Tylenol every 4 hours and Motrin every 6 hours (as long as your family doctor has told you that you can take it) for fever or pain. and straight to ER if unable to lower temp less than 101.0 after medication given *Warm salt water gargles may help to soothe the throat *Throat Lozenges *Warm fluids like tea with honey may help to soothe the throat *Sleep elevated *Humidifier/Vaporizer Take medication as prescribed Return if needed Follow up IMMEDIATELY for new or worsening symptoms or no Noticeable improvement over the next 48-72 hours. 911 for difficulty breathing or swallowing Prescriptions: Amoxicillin [Amoxicillin 875MG Tab] 875 mg PO Q12H #20 tab [facility] Status[facility] Referrals: Jason Griffith MD [Primary Care Provider] - As needed Time of Disposition: 13:22 Medical Decision Making - Desmond Inquiry Pt receiving controlled substance: No Desmond was queried for this patient: No Vital Signs: 09/23/21 13:13 Temperature 99.0 F Temperature Source Oral Pulse Rate [Right Brachial] 81 Respiratory Rate 19 Blood Pressure [Right Arm] 131/79 Blood Pressure Mean [Right Arm] 96 Blood Pressure Source [Right Arm] Automatic Cuff Blood Pressure Position [Right Arm] Sitting 02 Sat by Pulse Oximetry 100 Oxygen Delivery Method Room Air Orders (Tests/Meds): ED MEDICATIONS Discontinued Medications Generic Name Dose Route Start Last Admin Trade Name Freq PRN Reason Stop Dose Admin Methylprednisolone Sodium Succinate 125 mg 09/23/21 13:17 09/23/21 13:30 Methylprednisolone Sod Succ 125mg Vial IM 09/23/21 13:18 125 mg ONCE ONE Administration ORDERS Category Date Time Status Full Resp Panel w/COVID ([facility]) Routine Lab 09/23/21 13:04 Received [facility] [place] HPI - General Stated complaint: cough, congestion, GIL, earache Time Seen by Provider: 09/23/21 13:18 Mode of Arrival: Ambulatory Source of Information: Patient Limitations: No Limitations Description of Symptoms (Recalled from Triage Doc. by RN): PATIENT C/O EAR ACHE, CONGESTION, RUNNY NOSE, COUGH, FATIGUE, AND CHILLS X 3 DAYS. RECENTLY EXPOSED TO COVID AND FLU HEENT Symptoms (Recalled from RN notes): Yes Resp Symptoms (Recalled from RN notes): Yes Skin Symptoms (Recalled from RN notes): No MS Symptoms (Recalled from RN notes): No Functional Status (Recalled from RN notes): WNL - History of Present Illness Provider Complaint: Patient states that she has recently been been around someone with flu and COVID States that since Thursday she has been having pain in her left ear, sore throat, cough, sinus congestion and pressure and body aches with chills States that pain in ear is worse and she thinks it is causing her throat to hurt so she came in - Related Data Previous Rx's Medication Instructions Recorded Fluticasone Propionate [Flonase 1 spr NS DAILY #1 each 05/07/21 50mcg nasal spray 16gm] Amoxicillin [Amoxicillin 875MG 875 mg PO Q12H #20 tab 09/23/21 Tab] Allergies Allergy/AdvReac Type Severity Reaction Status Date / Time No Known Allergies Allergy Verified 05/22/21 18:48 - Worker's Comp Is this a Worker's Comp case?: No [facility] History - Hepatitis A Screen Attestation statement:: This patient has been screened for Hepatitis A risk factors. I have reviewed the patient's past medical history: Yes Medical History: Reports:: Asthma Denies:: Cancer, Diabetes Mellitus Type 1, Diabetes Mellitus Type 2, MRSA Other Surgeries: Yes: No Previous Surgery Comment: wisdom teeth, toe - Social History S
[2021-09-23 13:50] VITALS: BP 131/79; PULSE 81; RESP 19; TEMP 37.2; O2SAT 100
[2021-09-23 20:33] LABS: Human Metapneumovirus Detected (NotDetected); Respiratory Syncytial Virus Detected (NotDetected)
== END 2021-09-23 13:57 | disposition home or self-care (01) ==
PROVIDERS: Emergency Provider Nurse Practitioner; PCP Family Medicine
DX: H65.192 Other acute nonsuppurative otitis media, left ear (principal); B97.4 Respiratory syncytial virus as the cause of diseases classified elsewhere; J45.909 Unspecified asthma, uncomplicated
CPT/HCPCS: 87581; 87632; 87798; 96372; 99213; C9803; G0463; U0003; U0005

== ENCOUNTER 2021-11-21 19:07 | Emergency (ER) | payer OTHER, SELFPAY ==
[2021-11-21 19:09] VITALS: BP 142/98; PULSE 122; RESP 18; TEMP 38.4; O2SAT 100; BMI 34.9
--- NOTE | 2021-11-21 19:39 | HMH.EDUTC ---
[facility] [place] Disposition Clinical Impression: Viral syndrome, Exposure to COVID-19 virus Disposition: Home, Self-Care Condition on Discharge: Good Instructions: DI for Viral Syndrome, DI for COVID-19 (Suspected or Confirmed ), Preventing the Spread of Coronavirus Discharge Instructions Additional Instructions: Drink plenty of fluids. Take tylenol or ibuprofen for pain or fever. Take the medications as directed. Follow up with your regular doctor. GO TO THE ER FOR ANY WORSENING SYMPTOMS Quarantine until you know the results of your covid-19 test. Notify your school or workplace of your results and follow their instructions regarding return to work/school. Prescriptions: Brompheniramine/Pseudoephed/Dm [Bromfed Dm Cough Syrup] 5 ml PO Q6HP PRN #240 ml PRN Reason: Cough Transmission Status: Received by [id number] Ondansetron [Zofran 4mg ODT] 4 mg PO Q8HP PRN #12 tab PRN Reason: Nausea Transmission Status: Received by [id number] Referrals: Jason Griffith MD [Primary Care Provider] - Forms: Work/School Release Time of Disposition: 19:56 Medical Decision Making - Medical Records Medical records reviewed: No: I reviewed the patient's medical records. - Desmond Inquiry Pt receiving controlled substance: No Vital Signs: 11/21/21 19:09 11/21/21 19:59 Temperature 101.1 F H 101.1 F H Temperature Source Oral Pulse Rate 122 H Pulse Rate [Radial] 122 H Respiratory Rate 18 20 Blood Pressure 142/98 H Blood Pressure [Right Arm] 142/98 H Blood Pressure Mean [Right Arm] 112 Blood Pressure Source [Right Arm] Automatic Cuff Blood Pressure Position [Right Arm] Sitting 02 Sat by Pulse Oximetry 100 Oxygen Delivery Method Room Air Room Air - Lab Data Lab results reviewed: Yes: I reviewed the patient's lab results. Orders (Tests/Meds): ORDERS Category Date Time Status Covid-19 Nasal PCR ([facility]) Routine Lab 11/21/21 19:18 Stop Req Full Resp Panel w/COVID ([facility]) Routine Lab 11/21/21 19:10 Received [facility] [place] HPI - General Stated complaint: FEVER.lamas,bODY ACHES,dIZZY Time Seen by Provider: 11/21/21 19:39 Mode of Arrival: Ambulatory Source of Information: Patient Limitations: No Limitations Description of Symptoms (Recalled from Triage Doc. by RN): FEVER, CHILLS, HEADACHE, BODY ACHES AND NAUSEA HEENT Symptoms (Recalled from RN notes): Yes Resp Symptoms (Recalled from RN notes): No Skin Symptoms (Recalled from RN notes): No MS Symptoms (Recalled from RN notes): Yes Functional Status (Recalled from RN notes): N/A - History of Present Illness Provider Complaint: She c/o body aches, chills, low grade fever and n/v since this morning. 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 She denies any sore throat. - Related Data Previous Rx's Medication Instructions Recorded Fluticasone Propionate [Flonase 1 spr NS DAILY #1 each 05/07/21 50mcg nasal spray 16gm] Amoxicillin [Amoxicillin 875MG 875 mg PO Q12H #20 tab 09/23/21 Tab] Brompheniramine/Pseudoephed/Dm 5 ml PO Q6HP PRN #240 ml 11/21/21 [Bromfed Dm Cough Syrup] Ondansetron [Zofran 4mg ODT] 4 mg PO Q8HP PRN #12 tab 11/21/21 Allergies Allergy/AdvReac Type Severity Reaction Status Date / Time No Known Allergies Allergy Verified 05/22/21 18:48 - Worker's Comp Is this a Worker's Comp case?: No [facility] History - Hepatitis A Screen Attestation statement:: This patient has been screened for Hepatitis A risk factors. I have reviewed the patient's past medical history: Yes Medical History: Reports:: Asthma Denies:: Cancer, Diabetes Mellitus Type 1, Diabetes Mellitus Type 2, MRSA Other Surgeries: Yes: No Previous Surgery Comment: wisdom teeth, toe - Social History Smoking Status: Never smoker Alcohol Intake: current Alcohol Intake Frequency:: holidays/special occasions only Occupational Status: employed Housing: house Household Members: family Family Hx:: No sig
[2021-11-21 19:59] VITALS: BP 142/98; PULSE 122; RESP 20; TEMP 38.4; O2SAT 100
[2021-11-21 20:17] LABS: Adenovirus,PCR Not Detected (NotDetected); Bordetella Pertussis Not Detected (NotDetected); Chlamydophila Pneumoniae, PCR Not Detected (NotDetected); Coronavirus 19, PCR Not Detected (NotDetected); Coronavirus 229E Not Detected (NotDetected); Coronavirus NL63 Not Detected (NotDetected); Coronavirus OC43 Not Detected (NotDetected); Coronovirus HKU1,PCR Not Detected (NotDetected); Human Metapneumovirus Not Detected (NotDetected); Influenza A, PCR Not Detected (NotDetected); Influenza AH1, 2009 Not Detected (NotDetected); Influenza AH1, PCR Not Detected (NotDetected); Influenza AH3,PCR Not Detected (NotDetected); Influenza B, PCR Not Detected (NotDetected); Mycoplasma Pneumoniae, PCR Not Detected (NotDetected); Parainfluenza 1, PCR Not Detected (NotDetected); Parainfluenza 2, PCR Not Detected (NotDetected); Parainfluenza 3, PCR Not Detected (NotDetected); Parainfluenza 4, PCR Not Detected (NotDetected); Respiratory Syncytial Virus Not Detected (NotDetected); Rhinovirus/Enterovirus Not Detected (NotDetected)
== END 2021-11-21 20:01 | disposition home or self-care (01) ==
PROVIDERS: Emergency Provider Nurse Practitioner Family; PCP Family Medicine
DX: Z20.822 Contact with and (suspected) exposure to COVID-19 (principal); R50.9 Fever, unspecified; R51.9 Headache, unspecified; R42 Dizziness and giddiness
CPT/HCPCS: 87581; 87632; 87798; 99212; C9803; G0463; U0003; U0005

== ENCOUNTER → 2021-11-27 14:28 | Outpatient (CLI) | payer OTHER, SELFPAY ==
[2021-11-27 15:12] LABS: Basophils % 0.4 % (0.1-2.0); Eosinophils % 0.6 % (0.1-12.0); Hematocrit 36.2 % (37.0-47.0); Hemoglobin 11.5 g/dL (12.2-16.2); Lymphocytes % 34.7 % (10-50); Mean Corpuscular HGB Conc 31.8 g/dL (31.8-35.4); Mean Corpuscular Hemoglobin 23.7 pg (27.0-31.2); Mean Corpuscular Volume 74.4 fl (81-99); Mean Platelet Volume 8.4 fl (7.4-10.4); Monocytes # 0.3 K/mm3 (0.1-1.0); Monocytes % 5.2 % (1.7-9.3); Neutrophils # 3.4 K/mm3 (1.8-7.8); Neutrophils % 59.1 % (37.0-80.0); Platelet Count 364 K/mm3 (142-424); Red Blood Count 4.86 M/mm3 (4.20-5.40); Red Cell Distribution Width 15.5 % (11.5-17.5); White Blood Count 5.7 K/mm3 (4.8-10.8)
== END ==
PROVIDERS: PCP Family Medicine; Visit Provider Nurse Practitioner Family
DX: Z20.822 Contact with and (suspected) exposure to COVID-19 (principal)
CPT/HCPCS: 85025; 87275; 87276; C9803; U0003; U0005

== ENCOUNTER 2021-12-17 15:46 | Emergency (ER) | payer OTHER, SELFPAY ==
[2021-12-17 17:30] VITALS: BP 115/73; PULSE 82; RESP 20; TEMP 36.8; O2SAT 100; BMI 34.4
[2021-12-17 17:44] LABS: Adenovirus,PCR Not Detected (NotDetected); Bordetella Pertussis Not Detected (NotDetected); Chlamydophila Pneumoniae, PCR Not Detected (NotDetected); Coronavirus 19, PCR Not Detected (NotDetected); Coronavirus 229E Not Detected (NotDetected); Coronavirus NL63 Not Detected (NotDetected); Coronavirus OC43 Not Detected (NotDetected); Coronovirus HKU1,PCR Not Detected (NotDetected); Human Metapneumovirus Not Detected (NotDetected); Influenza A, PCR Not Detected (NotDetected); Influenza AH1, 2009 Not Detected (NotDetected); Influenza AH1, PCR Not Detected (NotDetected); Influenza AH3,PCR Not Detected (NotDetected); Influenza B, PCR Not Detected (NotDetected); Mycoplasma Pneumoniae, PCR Not Detected (NotDetected); Parainfluenza 1, PCR Not Detected (NotDetected); Parainfluenza 2, PCR Not Detected (NotDetected); Parainfluenza 3, PCR Not Detected (NotDetected); Parainfluenza 4, PCR Not Detected (NotDetected); Respiratory Syncytial Virus Not Detected (NotDetected); Rhinovirus/Enterovirus Not Detected (NotDetected)
[2021-12-17 17:45] LABS: UTC Strep Screen (Rapid) Negative (Negative)
--- NOTE | 2021-12-17 17:48 | HMH.EDUTC ---
[facility] [place] Disposition Clinical Impression: Exposure to COVID-19 virus, Viral syndrome Disposition: Home, Self-Care Condition on Discharge: Good Instructions: DI for Viral Syndrome, DI for COVID-19 (Suspected or Confirmed ), Preventing the Spread of Coronavirus Discharge Instructions Additional Instructions: *Monitor Temp, Over the counter Motrin or Tylenol as directed/as needed Tylenol every 4 hours and Motrin every 6 hours (as long as your family doctor has told you that you can take it) for fever or pain. and straight to ER if unable to lower temp less than 101.0 after medication given *Warm salt water gargles may help to soothe the throat *Throat Lozenges *Warm fluids like tea with honey may help to soothe the throat *Sleep elevated *Humidifier/Vaporizer Your throat swab was sent for culture. Those results are typically sent to your primary care. Be sure to follow up in 2-3 days with your family doctor/primary care physician if no improvement so they can review those result and treat if necessary. If you don?t have a primary care doctor, I recommend you get one but in the mean time, you will have to return to a walk in clinic Follow up IMMEDIATELY for new or worsening symptoms or no Noticeable improvement over the next 48-72 hours. 911 for difficulty breathing or swallowing You were tested for today for COVID19 your test result should be back in the next 24-48 hours, you may check your results on the [facility] My Health Portal Make sure to take your Vitamins Vit. C Vit D and Zinc if you can take them Referrals: Jason Griffith MD [Primary Care Provider] - As needed Forms: Work/School Release Time of Disposition: 17:56 Medical Decision Making - Desmond Inquiry Pt receiving controlled substance: No Desmond was queried for this patient: No Vital Signs: 12/17/21 17:30 Temperature 98.3 F Temperature Source Oral Pulse Rate [Right Brachial] 82 Respiratory Rate 20 Blood Pressure [Right Arm] 115/73 Blood Pressure Mean [Right Arm] 87 Blood Pressure Source [Right Arm] Automatic Cuff Blood Pressure Position [Right Arm] Sitting 02 Sat by Pulse Oximetry 100 Oxygen Delivery Method Room Air - Lab Data Lab Results 12/17/21 17:30: Strep Scn Rapid Clinic Negative Orders (Tests/Meds): ORDERS Category Date Time Status Full Resp Panel w/COVID ([facility]) Routine Lab 12/17/21 17:30 Received Strep Screen Confirmation Stat Micro 12/17/21 17:30 Received [facility] UTC HPI - General Stated complaint: exposed, chills,GIL Body Aches Time Seen by Provider: 12/17/21 17:48 Mode of Arrival: Ambulatory Source of Information: Patient Limitations: No Limitations Description of Symptoms (Recalled from Triage Doc. 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
[2021-12-17 17:57] VITALS: BP 115/73; PULSE 82; RESP 20; TEMP 36.8; O2SAT 100
== END 2021-12-17 18:04 | disposition home or self-care (01) ==
PROVIDERS: Emergency Provider Nurse Practitioner; PCP Family Medicine
DX: R19.7 Diarrhea, unspecified (principal); M79.10 Myalgia, unspecified site; J45.909 Unspecified asthma, uncomplicated; Z79.51 Long term (current) use of inhaled steroids; Z79.899 Other long term (current) drug therapy; Z20.822 Contact with and (suspected) exposure to COVID-19
CPT/HCPCS: 87581; 87632; 87798; 87880; 99213; C9803; G0463; U0003; U0005

== ENCOUNTER → 2021-12-27 09:54 | Outpatient (CLI) | payer OTHER, SELFPAY ==
--- NOTE | 2021-12-27 09:59 | US_ITS ---
FINAL REPORT CLINICAL HISTORY: ABDOMINAL PAIN. ELEVATED LFT S FINDINGS: RIGHT UPPER QUADRANT ULTRASOUND Sonographic images of the right upper quadrant were obtained. The pancreas is partially obscured. There is fatty infiltration of the liver. The gallbladder is contracted. The common duct is normal. Limited images of the right kidney are normal. IMPRESSION: Fatty liver. Reviewed, Interpreted and Dictated by Be Pickett MD Transcribed by Eli Lamas Authenticated and [facility]
== END ==
PROVIDERS: PCP Family Medicine; Visit Provider Nurse Practitioner Family
DX: R10.11 Right upper quadrant pain (principal); R79.89 Other specified abnormal findings of blood chemistry
CPT/HCPCS: 76705

== ENCOUNTER 2022-01-07 10:35 | Emergency (ER) | payer OTHER, SELFPAY ==
--- NOTE | 2022-01-07 11:43 | EXP.UTC ---
Discharge Plan Disposition Patient Disposition: Home, Self-Care Condition: Good Prescriptions Prescriptions: New azithromycin [Zithromax] 250 mg tablet 250 mg PO UD DOSE PK Qty: 6 0RF Rx Instructions: Take two (2) tablets today, then one (1) tablet days #2 thru #5 benzonatate [benzonatate] 100 mg capsule 100 mg PO TIDP PRN (Reason: Cough) Qty: 30 0RF methylprednisolone 4 mg Tablets,Dose Pack 4 mg PO DIRECTED Qty: 21 0RF No Action fluticasone propionate 120 SPR/BOT bottle 1 spr NS DAILY Qty: 1 0RF Rx Instructions: one spray in each nostril daily amoxicillin 875 MG tablet 875 mg PO Q12H Qty: 20 0RF ondansetron 4 MG tablet,disintegrating 4 mg PO Q8HP PRN (Reason: Nausea) Qty: 12 0RF ekwsbvedjymvltq-glhenwwxs-TH 118 ML syrup 5 ml PO Q6HP PRN (Reason: Cough) Qty: 240 0RF Referrals Follow up/Referrals: Jason Griffith MD [Primary Care Provider] - See instructions Activity Restrictions/Add. Instructions Additional Instructions/Restrictions: Drink plenty of fluids. Take tylenol or ibuprofen for pain or fever. Take the medications as directed. Follow up with your regular doctor. GO TO THE ER FOR ANY WORSENING SYMPTOMS Quarantine until you know the results of your covid-19 test. Notify your school or workplace of your results and follow their instructions regarding return to work/school. Clinical Impressions Clinical Impression: Exposure to COVID-19 virus, Pharyngitis Stand Alone Forms Stand Alone Forms: Work/School Release Instructions Patient Instructions: Coronavirus Disease 2019, Preventing the Spread of Coronavirus Discharge Instructions Discharge ED Provider[place] Gentry Mast [facility] [place] General Stated complaint: cough, runny nose, GIL, body aches Time Seen by Provider: 01/07/22 11:44 History of Present Illness Provider Complaint: She c/o sore throat, sinus congestion and malaise for the past 3 days. Related Data Previous Rx's Medication Instructions Recorded fluticasone propionate 50 1 spr NS DAILY #1 ea 05/07/21 mcg/actuation nasal spray,suspension amoxicillin 875 mg tablet 875 mg PO Q12H #20 tabs 09/23/21 wqzpepqyadoevhk-dgfmoznxpoxunmo-EY 5 ml PO Q6HP PRN Cough #240 mL 11/21/21 2 mg-30 mg-10 mg/5 mL oral syrup ondansetron 4 mg disintegrating 4 mg PO Q8HP PRN Nausea #12 tabs 11/21/21 tablet azithromycin 250 mg tablet 250 mg PO UD DOSE PK #6 tabs 01/07/22 (Zithromax) benzonatate 100 mg capsule 100 mg PO TIDP PRN Cough #30 caps 01/07/22 methylprednisolone 4 mg tablets in 4 mg PO DIRECTED #21 tabs 01/07/22 a dose pack Allergies Allergy/AdvReac Type Severity Reaction Status Date / Time No Known Allergies Allergy Verified 01/07/22 12:03 PFSH PFS Social History Smoking Status: Never smoker second hand exposure: No alcohol intake: never current occupational status: other Travel in the last 8 weeks: None household members: family housing: house caffeine: Yes ROS Obtained: Yes All systems reviewed & no additional complaints except as documented Constitutional Constitutional: Reports chills and Reports fever(s) Eyes Eyes: Denies eye discharge ENT Ears, Nose, Mouth, and Throat: Reports as per HPI Cardiovascular Cardiovascular: Denies chest pain Respiratory Respiratory: Denies chest congestion and Reports cough Gastrointestinal Gastrointestingal: Reports nausea; Denies abdominal pain, constipation, cramping, diarrhea or vomiting Musculoskeletal Musculoskeletal: Denies arthralgias Integumentary/Breasts Skin/Breast: Denies rash Neurologic Neurologic: Denies paresthesias Physical Exam General General appearance: alert and in no apparent distress Head Head exam: atraumatic, normocephalic and normal inspection Eye Eye exam: Present normal appearance, PERRL and EOMI ENT ENT exam: Present mucous membranes moist and normal externa
[2022-01-07 11:58] LABS: UTC Strep Screen (Rapid) Negative (Negative)
[2022-01-07 12:00] VITALS: BP 136/66; PULSE 102; RESP 18; TEMP 37.1; O2SAT 98; BMI 34.2
[2022-01-07 12:30] VITALS: BP 136/66; PULSE 102; RESP 18; TEMP 37.1
[2022-01-07 13:16] LABS: Adenovirus,PCR Not Detected (NotDetected); Bordetella Pertussis Not Detected (NotDetected); Chlamydophila Pneumoniae, PCR Not Detected (NotDetected); Coronavirus 19, PCR Not Detected (NotDetected); Coronavirus 229E Not Detected (NotDetected); Coronavirus NL63 Not Detected (NotDetected); Coronavirus OC43 Not Detected (NotDetected); Coronovirus HKU1,PCR Not Detected (NotDetected); Human Metapneumovirus Not Detected (NotDetected); Influenza A, PCR Not Detected (NotDetected); Influenza AH1, 2009 Not Detected (NotDetected); Influenza AH1, PCR Not Detected (NotDetected); Influenza AH3,PCR Not Detected (NotDetected); Influenza B, PCR Not Detected (NotDetected); Mycoplasma Pneumoniae, PCR Not Detected (NotDetected); Parainfluenza 1, PCR Not Detected (NotDetected); Parainfluenza 2, PCR Not Detected (NotDetected); Parainfluenza 3, PCR Not Detected (NotDetected); Parainfluenza 4, PCR Not Detected (NotDetected); Respiratory Syncytial Virus Not Detected (NotDetected); Rhinovirus/Enterovirus Not Detected (NotDetected)
== END 2022-01-07 12:31 | disposition home or self-care (01) ==
PROVIDERS: Emergency Provider Nurse Practitioner Family; PCP Family Medicine
DX: J02.9 Acute pharyngitis, unspecified (principal); M79.10 Myalgia, unspecified site; R51.9 Headache, unspecified; R53.81 Other malaise; R05.9 Cough, unspecified; R09.89 Other specified symptoms and signs involving the circulatory and respiratory systems; Z20.822 Contact with and (suspected) exposure to COVID-19; Z79.52 Long term (current) use of systemic steroids; Z79.899 Other long term (current) drug therapy
CPT/HCPCS: 87581; 87632; 87798; 87880; 99213; C9803; G0463; U0003; U0005

== ENCOUNTER → 2022-01-30 16:53 | Outpatient (CLI) | payer OTHER, SELFPAY ==
--- NOTE | 2022-01-30 17:02 | XR_ITS ---
PROCEDURE INFORMATION: Exam: XR Chest Exam date and time: 01/30/2022 5:46 PM Age: 21 years old Clinical indication: Cough; Additional info: Covid outpatient TECHNIQUE: Imaging protocol: Radiologic exam of the chest. Views: 1 view. COMPARISON: CR XR CHEST 2V 01/10/2021 1:16 AM FINDINGS: Lungs: Unremarkable. No consolidation. Pleural spaces: Unremarkable. No pleural effusion. No pneumothorax. Heart/Mediastinum: Unremarkable. No cardiomegaly. Bones/joints: Unremarkable. IMPRESSION: No acute cardiopulmonary process is identified.
[2022-01-30 17:47] LABS: Adenovirus,PCR Not Detected (NotDetected); Bordetella Pertussis Not Detected (NotDetected); Chlamydophila Pneumoniae, PCR Not Detected (NotDetected); Coronavirus 19, PCR Not Detected (NotDetected); Coronavirus 229E Not Detected (NotDetected); Coronavirus NL63 Not Detected (NotDetected); Coronavirus OC43 Not Detected (NotDetected); Coronovirus HKU1,PCR Not Detected (NotDetected); Human Metapneumovirus Not Detected (NotDetected); Influenza A, PCR Not Detected (NotDetected); Influenza AH1, 2009 Not Detected (NotDetected); Influenza AH1, PCR Not Detected (NotDetected); Influenza AH3,PCR Not Detected (NotDetected); Influenza B, PCR Not Detected (NotDetected); Mycoplasma Pneumoniae, PCR Not Detected (NotDetected); Parainfluenza 1, PCR Not Detected (NotDetected); Parainfluenza 2, PCR Not Detected (NotDetected); Parainfluenza 3, PCR Not Detected (NotDetected); Parainfluenza 4, PCR Not Detected (NotDetected); Respiratory Syncytial Virus Not Detected (NotDetected)
[2022-01-30 18:29] LABS: Basophils # 0.1 K/mm3 (0-0.2); Basophils % 1.2 % (0.1-2.0); Eosinophils # 0.1 K/mm3 (0.0-0.4); Hematocrit 38.3 % (37.0-47.0); Hemoglobin 12.6 g/dL (12.2-16.2); Lymphocytes # 2.6 K/mm3 (0.7-4.5); Lymphocytes % 40.9 % (10-50); Mean Corpuscular HGB Conc 32.9 g/dL (31.8-35.4); Mean Corpuscular Hemoglobin 24.9 pg (27.0-31.2); Mean Corpuscular Volume 75.6 fl (81-99); Mean Platelet Volume 8.5 fl (7.4-10.4); Monocytes # 0.4 K/mm3 (0.1-1.0); Monocytes % 5.5 % (1.7-9.3); Neutrophils # 3.3 K/mm3 (1.8-7.8); Neutrophils % 50.3 % (37.0-80.0); Platelet Count 412 K/mm3 (142-424); Red Blood Count 5.07 M/mm3 (4.20-5.40); Red Cell Distribution Width 16.2 % (11.5-17.5); White Blood Count 6.5 K/mm3 (4.8-10.8)
[2022-01-30 22:26] LABS: Rhinovirus/Enterovirus Detected (NotDetected)
== END ==
PROVIDERS: PCP Family Medicine; Visit Provider Physician Assistant
DX: Z20.822 Contact with and (suspected) exposure to COVID-19 (principal); B34.1 Enterovirus infection, unspecified
CPT/HCPCS: 36415; 71045; 85025; 87581; 87632; 87798; C9803; U0003; U0005

== ENCOUNTER → 2022-02-10 10:20 | Outpatient (CLI) | payer OTHER, SELFPAY ==
--- NOTE | 2022-02-10 10:23 | NM_ITS ---
FINAL REPORT CLINICAL HISTORY: ABD PAIN 11:10 am 7.69 mci tc choletec injected into lt ant 2 mcg of cck slight pain during cck FINDINGS: Sequential anterior projection images of the abdomen were obtained after the intravenous injection of 7.69 mCi technetium 99m Choletec. There is normal uptake of radiotracer by the liver. The bile ducts are visualized by 5 minutes. Gallbladder activity is seen by 10 minutes. Bowel activity is noted by 5 minutes. After 1 hour, 2.0 ?g of CCK was injected intravenously for calculation of gallbladder ejection fraction. The gallbladder ejection fraction is 31%, which is borderline normal. IMPRESSION: No evidence of cystic duct or bile duct obstruction. Borderline normal gallbladder ejection fraction of 31%. Reviewed, Interpreted and Dictated by Claude Oakley III, MD Transcribed by Rae Cody Authenticated and [facility]
[2022-02-10 10:57] LABS: Urine Pregnancy, HCG Qual. Negative (Negative)
== END ==
PROVIDERS: Physician Assistant; PCP Family Medicine; Visit Provider Nurse Practitioner Family
DX: R10.9 Unspecified abdominal pain (principal)
CPT/HCPCS: 78227; 81025; A9537; J2805

== ENCOUNTER → 2022-02-26 16:09 | Outpatient (CLI) | payer OTHER, SELFPAY ==
[2022-02-26 17:11] LABS: Adenovirus,PCR Not Detected (NotDetected); Bordetella Pertussis Not Detected (NotDetected); Chlamydophila Pneumoniae, PCR Not Detected (NotDetected); Coronavirus 19, PCR Not Detected (NotDetected); Coronavirus 229E Not Detected (NotDetected); Coronavirus NL63 Not Detected (NotDetected); Coronavirus OC43 Not Detected (NotDetected); Coronovirus HKU1,PCR Not Detected (NotDetected); Human Metapneumovirus Not Detected (NotDetected); Influenza A, PCR Not Detected (NotDetected); Influenza AH1, 2009 Not Detected (NotDetected); Influenza AH1, PCR Not Detected (NotDetected); Influenza AH3,PCR Not Detected (NotDetected); Influenza B, PCR Not Detected (NotDetected); Mycoplasma Pneumoniae, PCR Not Detected (NotDetected); Parainfluenza 1, PCR Not Detected (NotDetected); Parainfluenza 2, PCR Not Detected (NotDetected); Parainfluenza 3, PCR Not Detected (NotDetected); Parainfluenza 4, PCR Not Detected (NotDetected); Respiratory Syncytial Virus Not Detected (NotDetected)
[2022-02-26 17:21] LABS: Basophils # 0.1 K/mm3 (0-0.2); Basophils % 0.6 % (0.1-2.0); Eosinophils # 0.1 K/mm3 (0.0-0.4); Eosinophils % 1.3 % (0.1-12.0); Hematocrit 36.4 % (37.0-47.0); Hemoglobin 11.6 g/dL (12.2-16.2); Lymphocytes # 2.7 K/mm3 (0.7-4.5); Lymphocytes % 30.2 % (10-50); Mean Corpuscular HGB Conc 31.9 g/dL (31.8-35.4); Mean Corpuscular Hemoglobin 24.2 pg (27.0-31.2); Mean Corpuscular Volume 75.9 fl (81-99); Mean Platelet Volume 8.6 fl (7.4-10.4); Monocytes # 0.6 K/mm3 (0.1-1.0); Monocytes % 6.2 % (1.7-9.3); Neutrophils # 5.6 K/mm3 (1.8-7.8); Neutrophils % 61.8 % (37.0-80.0); Platelet Count 390 K/mm3 (142-424); Red Cell Distribution Width 16.7 % (11.5-17.5)
[2022-02-27 00:52] LABS: Rhinovirus/Enterovirus Detected (NotDetected)
== END ==
PROVIDERS: PCP Family Medicine; Visit Provider Physician Assistant
DX: Z20.822 Contact with and (suspected) exposure to COVID-19 (principal); B34.1 Enterovirus infection, unspecified
CPT/HCPCS: 36415; 85025; 87581; 87632; 87798; C9803; U0003; U0005

== ENCOUNTER 2022-03-22 23:39 | Emergency (ER) | payer OTHER, SELFPAY ==
[2022-03-22 23:49] VITALS: BP 134/87; PULSE 72; RESP 18; TEMP 36.6; O2SAT 99; BMI 34.2
--- NOTE | 2022-03-22 23:54 | HMH.EDEYEP ---
Discharge Plan Disposition Patient Disposition: Home, Self-Care Chief Complaint: Eye Problems Referrals Follow up/Referrals: Jason Griffith MD [Primary Care Provider] - See instructions Clinical Impressions Clinical Impression: Iritis, Acute iritis Discharge ED Provider: Aaron Coyle Eye Problem HPI General Chief complaint: Eye Problems Stated complaint: right eye swollen with drainage Time Seen by Provider: 03/22/22 23:54 Mode of Arrival: Ambulatory Source of Information: Patient, Spouse and Medical Record Limitations: No Limitations Description of Symptoms (Recalled from ER Triage Doc. by RN): Pt states that she woke up this morning and her right eye was draining and itching. Pt states that its now burning. Denies any recent injury. History of Present Illness HPI Narrative: no contact lens but has progressive swelling rt periorbital and reddness and drainage rt eye - no fb sensation chief complaint: eye pain and eye redness Onset (ago): hour(s) Onset description: gradual Duration: constant Location: right eye Eye Symptoms: itching, discharge and blurry vision Place: home Mechanism: none Severity: moderate Related Data Allergies Allergy/AdvReac Type Severity Reaction Status Date / Time No Known Allergies Allergy Verified 01/07/22 12:03 PFSH PFS Social History Smoking Status: Never smoker second hand exposure: No alcohol intake: never current occupational status: other Travel in the last 8 weeks: None household members: family housing: house caffeine: Yes ROS Obtained: Yes All systems reviewed & no additional complaints except as documented Physical Exam General General appearance: alert Head Head exam: normocephalic Eye Eye exam: Present PERRL, EOMI, conjunctival redness, periorbital swelling and other (no fb and neg fluro stain); Absent periorbital tenderness ENT ENT exam: Present mucous membranes moist Neck Neck exam: Absent trachea midline Respiratory Respiratory exam: Present normal lung sounds bilaterally Cardiovascular Cardiovascular exam: Present regular rate Abdominal Exam Abdominal exam: Present soft Extremities Exam Extremities exam: Present full ROM Neurological Exam Neurological exam: Present alert, oriented X3 and CN II-XII intact Psychiatric Psychiatric exam: Present normal affect Skin Skin exam: Absent rash Medical Decision Making Medical Records Medical records reviewed: Yes I reviewed the patient's medical records. Desmond Inquiry Pt receiving controlled substance: No Vital Signs: 03/22/22 23:49 03/23/22 00:20 Temperature 98 F 98 F Temperature Source Oral Oral Pulse Rate 68 Pulse Rate [Apical] 72 Respiratory Rate 18 16 Blood Pressure 125/85 Blood Pressure [Right Arm] 134/87 Blood Pressure Mean [Right Arm] 102 Blood Pressure Source Automatic Cuff Blood Pressure Source [Right Arm] Automatic Cuff Blood Pressure Position Sitting Blood Pressure Position [Right Arm] Sitting 02 Sat by Pulse Oximetry 99 Oxygen Delivery Method Room Air Room Air Orders (Tests/Meds): ED MEDICATIONS Generic Name Dose Route Start Last Admin Trade Name Fresalvatore PRN Reason Stop Dose Admin Fluorescein Sodium 1 mg 03/23/22 00:21 03/23/22 00:26 Fluorescein Sodium 1mg Strip OP 03/23/22 00:22 1 mg ONCE ONE Administration Ceftriaxone Sodium 1 gm/ 50 mls @ 100 mls/hr 03/23/22 00:15 03/23/22 00:17 Sodium Chloride IV 04/06/22 00:14 Not Given Q24H BOOM Neomycin/Polymyxin/Bacitracin 1 gm 03/23/22 00:21 03/23/22 00:27 Wgwvbyxb-Nztlq-Ccnea Ophth Oint 3.5gm Tube OP 03/23/22 00:22 1 gm ONCE ONE Administration Tetracaine HCl 1 ml 03/23/22 00:21 03/23/22 00:27 Tetracaine 0.5% Opth Madelin 15ml OP 03/23/22 00:22 1 mg ONCE ONE Administration Discontinued Medications Generic Name Dose Route Start Last Admin Trade Name Freq PRN Reason Stop Dose Admin Ceftriaxone Sod
--- NOTE | 2022-03-23 00:02 | PC.NURSE ---
Visual acquity test ordered by . Pt vision was 20/15 in left eye and 20/30 in right eye.
--- NOTE | 2022-03-23 00:13 | PC.NURSE ---
speaking with Dr. Burris at this time
[2022-03-23 00:20] VITALS: BP 125/85; PULSE 68; RESP 16; TEMP 36.6; O2SAT 98
== END 2022-03-23 00:36 | disposition home or self-care (01) ==
PROVIDERS: Emergency Provider Emergency Medicine; PCP Family Medicine
DX: H20.00 Unspecified acute and subacute iridocyclitis (principal)
CPT/HCPCS: 65205; 96372; 99283; J0696

== ENCOUNTER 2022-04-22 16:27 | Emergency (ER) | payer OTHER, SELFPAY ==
[2022-04-22 16:35] VITALS: BP 115/81; PULSE 130; RESP 20; TEMP 38.5; O2SAT 99; BMI 34.7
--- NOTE | 2022-04-22 16:50 | EXP.UTC ---
Discharge Plan Disposition Patient Disposition: Home, Self-Care Condition: Good Prescriptions Prescriptions: New ondansetron 4 mg tablet,disintegrating 4 mg PO Q8H PRN (Reason: nausea and vomiting) Qty: 10 0RF Referrals Follow up/Referrals: Jason Griffith MD [Primary Care Provider] - See instructions Activity Restrictions/Add. Instructions Additional Instructions/Restrictions: *Monitor Temp, Over the counter Motrin or Tylenol as directed/as needed Tylenol every 4 hours and Motrin every 6 hours (as long as your family doctor has told you that you can take it) for fever or pain. and straight to ER if unable to lower temp less than 101.0 after medication given *Warm salt water gargles may help to soothe the throat *Throat Lozenges? *Warm fluids like tea with honey may help to soothe the throat? *Sleep elevated *Humidifier/Vaporizer Your throat swab was sent for culture. Those results are typically sent to your primary care. Be sure to follow up in 2-3 days with your family doctor/primary care physician if no improvement so they can review those result and treat if necessary. If you don?t have a primary care doctor, I recommend you get one but in the mean time, you will have to return to a walk in clinic Follow up IMMEDIATELY for new or worsening symptoms or no Noticeable improvement over the next 48-72 hours. 911 for difficulty breathing or swallowing You were tested for today for COVID19 your test result should be back in the next 24-48 hours, you may check your results on the [facility] Portal Clinical Impressions Clinical Impression: Viral syndrome Stand Alone Forms Stand Alone Forms: Work/School Release Instructions Patient Instructions: DI for Viral Syndrome, DI for Fever (Symptom) -- Adult Discharge ED Provider: Miri Quiles [facility] [place] General Stated complaint: chills, vomiting, bodyaches, diarrhea Time Seen by Provider: 04/22/22 16:50 History of Present Illness Provider Complaint: Patient states that she hasnt been feeling well been having fever, chills, bodyaches along with N/V/D States that she hasnt been around anyone that she is aware of with flu but this evening she was still not feeling well and still having fever so she came in Related Data Previous Rx's Medication Instructions Recorded ondansetron 4 mg disintegrating 4 mg PO Q8H PRN nausea and 04/22/22 tablet vomiting #10 tabs Allergies Allergy/AdvReac Type Severity Reaction Status Date / Time No Known Allergies Allergy Verified 01/07/22 12:03 [facility] Disclaimer: The information contained in this section may have been updated after the patient was seen, as this information can be updated by other users. Medical History (Updated 04/22/22 @ 17:19 by Miri Quiles APRN) Asthma Social History (Updated 04/22/22 @ 16:54 by Wanda Potter RN) Smoking Status: Never smoker second hand exposure: No alcohol intake: never current occupational status: employed Travel in the last 8 weeks: None household members: family housing: house caffeine: Yes ROS Obtained: Yes All systems reviewed & no additional complaints except as documented and Yes Systems reviewed as appropriate & no additional complaints except as documented Constitutional Constitutional: Reports system reviewed and no additional complaints, except as documented, Reports as per HPI, Reports body ache, Reports chills and Reports headache(s) ENT Ears, Nose, Mouth, and Throat: Reports system reviewed and no additional complaints, except as documented, Reports as per HPI, Reports headache(s) and Reports nasal congestion Cardiovascular Cardiovascular: Reports system reviewed and no additional complaints, except as documented and Reports as per HPI Respiratory Respiratory: Reports system reviewed and no additional complaints, except as documented, Reports as per HPI and Reports cough Gastrointestinal Gastrointestingal:
[2022-04-22 16:56] LABS: UTC Influenza A Antigen Negative (Negative); UTC Influenza B Antigen Negative (Negative)
[2022-04-22 17:18] LABS: UTC Strep Screen (Rapid) Negative (Negative)
[2022-04-22 17:20] VITALS: BP 115/81; PULSE 130; RESP 20; TEMP 38.5; O2SAT 99
[2022-04-22 17:26] LABS: Adenovirus,PCR Not Detected (NotDetected); Bordetella Pertussis Not Detected (NotDetected); Chlamydophila Pneumoniae, PCR Not Detected (NotDetected); Coronavirus 19, PCR Not Detected (NotDetected); Coronavirus 229E Not Detected (NotDetected); Coronavirus NL63 Not Detected (NotDetected); Coronavirus OC43 Not Detected (NotDetected); Coronovirus HKU1,PCR Not Detected (NotDetected); Human Metapneumovirus Not Detected (NotDetected); Influenza A, PCR Not Detected (NotDetected); Influenza AH1, 2009 Not Detected (NotDetected); Influenza AH1, PCR Not Detected (NotDetected); Influenza AH3,PCR Not Detected (NotDetected); Influenza B, PCR Not Detected (NotDetected); Mycoplasma Pneumoniae, PCR Not Detected (NotDetected); Parainfluenza 1, PCR Not Detected (NotDetected); Parainfluenza 2, PCR Not Detected (NotDetected); Parainfluenza 3, PCR Not Detected (NotDetected); Parainfluenza 4, PCR Not Detected (NotDetected); Respiratory Syncytial Virus Not Detected (NotDetected); Rhinovirus/Enterovirus Not Detected (NotDetected)
== END 2022-04-22 17:24 | disposition home or self-care (01) ==
PROVIDERS: Emergency Provider Nurse Practitioner; PCP Family Medicine
DX: R50.9 Fever, unspecified (principal); R11.10 Vomiting, unspecified; R19.7 Diarrhea, unspecified; B34.9 Viral infection, unspecified
CPT/HCPCS: 87581; 87632; 87798; 87804; 87880; 99212; C9803; G0463; U0003; U0005

== ENCOUNTER 2022-05-15 10:30 | Emergency (ER) | payer OTHER, SELFPAY ==
[2022-05-15 10:45] VITALS: BP 125/76; PULSE 94; RESP 17; TEMP 36.9; O2SAT 98; BMI 30.5
--- NOTE | 2022-05-15 10:53 | EXP.UTC ---
Discharge Plan Disposition Patient Disposition: Home, Self-Care Condition: Good Prescriptions Prescriptions: New penicillin V potassium 500 mg tablet 500 mg PO BID Qty: 20 0RF methylprednisolone [Medrol (Mekhi)] 4 mg tablets,dose pack See Rx Instructions .Route .COMPLEX 6 Days Qty: 21 0RF Rx Instructions: taper pack; No Action ondansetron 4 mg tablet,disintegrating 4 mg PO Q8H PRN (Reason: nausea and vomiting) Qty: 10 0RF Referrals Follow up/Referrals: Jason Griffith MD [Primary Care Provider] - See instructions Activity Restrictions/Add. Instructions Additional Instructions/Restrictions: *Monitor Temp, Over the counter Motrin or Tylenol as directed/as needed Tylenol every 4 hours and Motrin every 6 hours (as long as your family doctor has told you that you can take it) for fever or pain. and straight to ER if unable to lower temp less than 101.0 after medication given *Warm salt water gargles may help to soothe the throat *Throat Lozenges? *Warm fluids like tea with honey may help to soothe the throat? *Sleep elevated *Humidifier/Vaporizer *If you did not take Penicillin shot or was unable to, start taking antibiotic immediately and make sure that you take it for the FULL length of time although you should start to feel better in 24-48 hours *change toothbrush and toothpaste 24-48 hours after starting to take antibiotics so you do not reinfect yourself Monitor Temp. Tylenol and/or Ibuprofen as needed. ER if fever is no less than 101 despite alternating Tylenol and Ibuprofen * Encourage fluids, water, Gatorade, powerade, pedialyte if infant/toddler/or child *Cold fluids, popsicles and ice cream may feel good on his throat Follow up IMMEDIATELY for new or worsening symptoms or no Noticeable improvement over the next 48-72 hours. 911 for difficulty breathing or swallowing Clinical Impressions Clinical Impression: Strep throat Stand Alone Forms Stand Alone Forms: Work/School Release Instructions Patient Instructions: Strep Throat, DI for Strep Throat, DI for Fever (Symptom) -- Adult Discharge ED Provider: Miri Quiles [facility] [place] HPI General Stated complaint: Sore throat, bodyaches, fever, headache Time Seen by Provider: 05/15/22 11:01 History of Present Illness Provider Complaint: Patient states that she has been having sore throat and her tonsils are all swollen up States that it hurts when she swallows States that today it was hurting worse so she came in to get it checked Related Data Previous Rx's Medication Instructions Recorded ondansetron 4 mg disintegrating 4 mg PO Q8H PRN nausea and 04/22/22 tablet vomiting #10 tabs methylprednisolone 4 mg tablets in See Rx Instructions .Route 05/15/22 a dose pack (Medrol (Mekhi)) .COMPLEX 6 days #21 tabs penicillin V potassium 500 mg 500 mg PO BID #20 tabs 05/15/22 tablet Allergies Allergy/AdvReac Type Severity Reaction Status Date / Time No Known Allergies Allergy Verified 01/07/22 12:03 [facility] Disclaimer: The information contained in this section may have been updated after the patient was seen, as this information can be updated by other users. Medical History (Updated 05/15/22 @ 11:06 by Miri Quiles APRN) Asthma Social History (Updated 04/22/22 @ 16:54 by Wanda Potter RN) Smoking Status: Never smoker second hand exposure: No alcohol intake: never current occupational status: employed Travel in the last 8 weeks: None household members: family housing: house caffeine: Yes ROS Obtained: Yes All systems reviewed & no additional complaints except as documented and Yes Systems reviewed as appropriate & no additional complaints except as documented Constitutional Constitutional: Reports system reviewed and no additional complaints, except as documented, Reports as per HPI, Reports body ache and Reports fever(s) ENT Ears, Nose, Mouth, and Throat: Reports system revi
[2022-05-15 11:00] LABS: UTC Influenza A Antigen Negative (Negative); UTC Strep Screen (Rapid) Positive (Negative)
[2022-05-15 11:01] LABS: UTC Influenza B Antigen Negative (Negative)
[2022-05-15 11:09] VITALS: BP 125/76; PULSE 94; RESP 17; TEMP 36.9; O2SAT 98
== END 2022-05-15 11:14 | disposition home or self-care (01) ==
PROVIDERS: Emergency Provider Nurse Practitioner; PCP Family Medicine
DX: J02.0 Streptococcal pharyngitis (principal)
CPT/HCPCS: 87804; 87880; 99212; 99213; G0463

== ENCOUNTER 2022-06-16 17:47 | Emergency (ER) | payer OTHER, SELFPAY ==
[2022-06-16 19:00] VITALS: BP 107/73; PULSE 91; RESP 19; TEMP 36.9; O2SAT 100; BMI 34.9
--- NOTE | 2022-06-16 19:24 | EXP.UTC ---
Discharge Plan Disposition Patient Disposition: Home, Self-Care Condition: Good Prescriptions Prescriptions: New amoxicillin 875 mg tablet 875 mg PO Q12H Qty: 20 0RF Referrals Follow up/Referrals: Jason Griffith MD [Primary Care Provider] - See instructions Activity Restrictions/Add. Instructions Additional Instructions/Restrictions: Take medication as prescribed Follow up with your Family Doctor if no improvement or any worsening of symptoms Return if needed Over the counter Motrin and/or Tylenol for fever ad pain Straight to ER if any life threatening symptoms Clinical Impressions Clinical Impression: Otitis media Stand Alone Forms Stand Alone Forms: Work/School Release Instructions Patient Instructions: Middle Ear Infection, Amoxicillin Discharge ED Provider: Miri Quiles [facility] HPI General Stated complaint: Severe ear pain Mode of Arrival: Ambulatory Source of Information: Patient Limitations: No Limitations Time Seen by Provider: 06/16/22 19:25 Description of Symptoms (Recalled from Triage Doc. by RN): PATIENT C/O RIGHT EAR AND JAW PAIN SINCE YESTERDAY HEENT Symptoms (Recalled from RN notes): Yes Resp Symptoms (Recalled from RN notes): No Skin Symptoms (Recalled from RN notes): No MS Symptoms (Recalled from RN notes): No Functional Status (Recalled from RN notes): WNL History of Present Illness Provider Complaint: Patient states that she has been having pain in her right ear for several days that has continued to get worse States that she did recently have dental work done not sure if her ear is making her jaw hurt or if her jaw is still sore from dental work Related Data Previous Rx's Medication Instructions Recorded amoxicillin 875 mg tablet 875 mg PO Q12H #20 tabs 06/16/22 Allergies Allergy/AdvReac Type Severity Reaction Status Date / Time No Known Allergies Allergy Verified 01/07/22 12:03 Worker's Comp Is this a Worker's Comp case?: No [facility] Disclaimer: The information contained in this section may have been updated after the patient was seen, as this information can be updated by other users. Medical History (Updated 06/16/22 @ 19:33 by Miri Quiles APRN) Asthma Social History (Updated 06/16/22 @ 19:14 by Wanda Potter RN) Smoking Status: Never smoker second hand exposure: No alcohol intake: never current occupational status: employed Travel in the last 8 weeks: None household members: family housing: house caffeine: Yes ROS Obtained: Yes All systems reviewed & no additional complaints except as documented and Yes Systems reviewed as appropriate & no additional complaints except as documented Constitutional Constitutional: Reports system reviewed and no additional complaints, except as documented and Reports as per HPI ENT Ears, Nose, Mouth, and Throat: Reports system reviewed and no additional complaints, except as documented, Reports as per HPI, Reports otalgia and Reports other (pain in jaw area) Cardiovascular Cardiovascular: Reports system reviewed and no additional complaints, except as documented and Reports as per HPI Respiratory Respiratory: Reports system reviewed and no additional complaints, except as documented and Reports as per HPI Gastrointestinal Gastrointestingal: Reports system reviewed and no additional complaints, except as documented and as per HPI Physical Exam General General appearance: alert and in no apparent distress Expanded ENT Exam TM/Canal exam: Left TM: loss of landmarks and Bilateral TM: erythema Nose exam: Absent sinus tenderness Teeth exam: Present other (recentl fillings on right back two teeth jaw not tender on palpation) Throat exam: Present normal inspection Respiratory Respiratory exam: Present normal lung sounds bilaterally; Absent respiratory distress or wheezes Cardiovascular Cardiovascular exam: Present regular rate, normal rhythm and normal heart sounds Neurological Exam Neurological
[2022-06-16 19:35] VITALS: BP 107/73; PULSE 91; RESP 19; TEMP 36.9; O2SAT 100
== END 2022-06-16 19:42 | disposition home or self-care (01) ==
PROVIDERS: Emergency Provider Nurse Practitioner; PCP Family Medicine
DX: H66.90 Otitis media, unspecified, unspecified ear (principal)
CPT/HCPCS: 99212; 99213; G0463

== ENCOUNTER 2022-11-14 12:12 | Outpatient (RCR) | payer OTHER, SELFPAY | END 2022-11-14 13:00 | disposition home or self-care (01) | LOC: PT 12:12 | PROVIDERS: Visit Provider Orthopaedic Surgery | DX: M25.561 Pain in right knee (principal) ==

== ENCOUNTER 2023-02-16 00:08 | Outpatient (CLI) | payer OTHER, SELFPAY ==
[2023-02-16 00:14] VITALS: BMI 36.5
[2023-02-16 00:40] VITALS: BP 129/85; PULSE 94; RESP 16; TEMP 37.6; O2SAT 98; BMI 36.5
[2023-02-16 00:43] LABS: Fetal Membrane Rupture (Rapid) Negative (Negative)
== END 2023-02-16 01:48 | disposition home or self-care (01) ==
LOC: OBOUT 00:09 → OB 00:11
PROVIDERS: PCP Family Medicine; Visit Provider Nurse Practitioner Obstetrics & Gynecology
DX: O60.03 Preterm labor without delivery, third trimester (principal); Z3A.37 37 weeks gestation of pregnancy
CPT/HCPCS: 84112; G0463

== ENCOUNTER 2024-07-28 17:27 | Emergency (ER) | payer SELFPAY ==
[2024-07-28 17:42] VITALS: BP 148/82; PULSE 90; RESP 18; TEMP 36.6; O2SAT 100; BMI 37.7
[2024-07-28 17:46] VITALS: BP 135/86; PULSE 103; O2SAT 99
[2024-07-28 17:57] LABS: Microscopic, Urine URINE MICROSCOPIC (MICROSCOPIC)
[2024-07-28 18:05] LABS: Bilirubin,Urine Negative (Negative); Blood, Urine LARGE (Negative); Color,Urine YELLOW (Yellow); Glucose,Urine (UA) Negative (Negative); Ketones,Urine Negative (Negative); Leukocyte Esterase,Urine Negative (Negative); Nitrate,Urine Negative (Negative); PH,Urine 6.5 (5.0-8.5); Protein,Urine Negative (Negative); Specific Gravity, Urine >= 1.030 (1.005-1.030)
[2024-07-28 18:06] LABS: Appearance,Urine Turbid (Clear)
[2024-07-28 19:24] VITALS: BP 162/92; PULSE 89; RESP 18; TEMP 36.6; O2SAT 100
[2024-07-28 20:29] LABS: Urine Pregnancy, HCG Qual. Negative (Negative)
[2024-07-28 21:11] VITALS: BP 147/100; PULSE 94; O2SAT 100
[2024-07-28 21:27] LABS: RBC,Urine 20-50 #/hpf (0-3)
[2024-07-28 21:28] LABS: Bacteria,Urine 1+ /lpf
--- NOTE | 2024-07-28 21:59 | HMH.EDGENADL ---
Discharge Plan Disposition Patient Disposition: Left Against Medical Advice Condition: Undetermined Prescriptions Prescriptions: New nitrofurantoin monohyd/m-cryst [Macrobid] 100 mg capsule 100 mg PO BID 7 Days Qty: 14 0RF Rx Instructions: must administer with a meal/food Referrals Follow up/Referrals: Debby Davis DO [Staff Physician] - See instructions (needs close followup for low HCG, of undetermined location, left AMA) Jason Griffith MD [Primary Care Provider] - See instructions Activity Restrictions/Add. Instructions Additional Instructions/Restrictions: You are leaving the ER AGAINST MEDICAL ADVICE. Please return to soon as possible to complete your evaluation. If you have any new or worsening symptoms immediately return or call 911. Clinical Impressions Clinical Impression: Positive blood test, Vaginal bleeding, Asymptomatic bacteriuria Instructions Patient Instructions: DI for Acute Abdominal Pain Print Language Print Language: Pakistani Discharge ED Provider: Sergio Fried General Adult HPI <Sergio Fried MD - Last Filed: 07/28/24 23:00> General Chief complaint: Abdominal Pain Stated complaint: abnormal bleeding and she is preg. Time Seen by Provider: 07/28/24 21:11 Mode of Arrival: Ambulatory Source of Information: Patient Description of Symptoms (Recalled from ER Triage Doc. by RN): PT states she has had vaginal bleeding since June 22, pt took a home test and result was positive. Pt states she has a hx of irregular menstrual cycles and last cycle before that was March 31- April 13 History of Present Illness HPI narrative: Please note that above description of symptoms, in this electronic medical record under categorization of recalled from ER triage doctor by RN are reflective of an initial nursing assessment, however, is not reflective of my full history and physical exam that was personally taken and clarified. Consequentially, this preceding description of symptoms, which may include the patient's categorized chief complaint in the EMR, do not reflect my personal clinical impression, and the ultimate description of history of present illness and patient stated complaints should be deferred to this section of the note. Unless stated otherwise or congruent with this section of the note, additional signs, symptoms, or incongruence should be interpreted as inaccurate with my clinical impression. Related Data Previous Rx's ?Medication ?Instructions ?Recorded nitrofurantoin 100 mg PO BID 7 days #14 caps 07/29/24 monohydrate/macrocrystals 100 mg capsule (Macrobid) Allergies Allergy/AdvReac Type Severity Reaction Status Date / Time No Known Allergies Allergy Verified 11/14/22 11:49 PFS <Sergio Fried MD - Last Filed: 07/28/24 23:00> [facility] Disclaimer: The information contained in this section may have been updated after the patient was seen, as this information can be updated by other users. Medical History Asthma Social History Smoking Status: Never smoker second hand exposure: No alcohol intake: never current occupational status: employed Travel in the last 8 weeks: None household members: family housing: house caffeine: Yes Have you lived/traveled outside [place] in past 30 days?: No Contact w/someone who lives/traveled outside [place] past 30 days?: No Exposure to someone with infectious disease in past 14 days?: No Do you have a fever (greater than 100.4 F or 38 C)?: No Have you tested positive for COVID-19: No Exposed to someone with COVID-19 in past 14 days?: No Do you have a sore throat?: No Do you have a cough?: No Do you have any weakness?: No Do you have any diarrhea?: No Are you experiencing any unusual bleeding?: No Do you have any muscle aches/pain?: No Do you have any abdominal pain?: Yes Are you experiencing loss of taste or smell?: No Other Medical History Have you received the Flu Vaccine for this season: No Have you received the Pneumonia Vaccine: No <Sergio Fried MD - Last Filed: 07/28/24 23:00> ROS Obtained: Yes All systems reviewed & no additional complaints except as documented Physical Exam <Sergio Fried MD - Last Filed: 07/28/24 23:00> General General appearance: alert Head Head exam: atraumatic and normocephalic Eye Eye exam: Present normal appearance, PERRL and EOMI Neck Neck exam: Present normal inspection, full ROM and trachea midline Respiratory Respiratory exam: Absent respiratory distress, wheezes, stridor, accessory muscle use or prolonged expiratory phase Cardiovascular Cardiovascular exam: Present other (Pulses equal symmetric in upper and lower extremities) Abdominal Exam Abdominal exam: Present soft; Absent distention, tenderness or pulsatile mass Extremities Exam Extremities exam: Absent edema Neurological Exam Neurological exam: Present alert, oriented X3 and CN II-XII intact; Absent motor sensory deficit Skin Skin exam: Present warm and dry; Absent diaphoresis or erythema Medical Decision Making <Sergio Fried MD - Last Filed: 07/28/24 23:00> Medical Records Medical records reviewed: Yes I reviewed the patient's medical records. Screening: Per USPSTF and CDC recommendations, given the prevalence of disease in our region, it is our hospital?s policy to screen for HIV and viral Hepatitis for all patients aged 18 and over and those with ongoing risk factors. [place] Inquiry Pt receiving controlled substance: No [place]mond was queried for this patient: No Vital Signs: 07/28/24 17:42 07/28/24 17:46 07/28/24 19:24 Temperature 97.8 F 98 F Temperature Source Temporal Artery Scan Oral Pulse Rate 103 H 89 Pulse Rate [Right] 90 Respiratory Rate 18 18 Blood Pressure 135/86 162/92 H Blood Pressure [Right Arm] 148/82 H Blood Pressure Mean [Right Arm] 104 Blood Pressure Source Automatic Cuff Blood Pressure Source [Right Arm] Automatic Cuff Blood Pressure Position Sitting Sitting Blood Pressure Position [Right Arm] Sitting 02 Sat by Pulse Oximetry 100 99 100 Oxygen Delivery Method Room Air Room Air Room Air 07/28/24 21:11 Temperature Temperature Source Pulse Rate 94 H Pulse Rate [Right] Respiratory Rate Blood Pressure 147/100 H Blood Pressure [Right Arm] Blood Pressure Mean [Right Arm] Blood Pressure Source Blood Pressure Source [Right Arm] Blood Pressure Position Blood Pressure Position [Right Arm] 02 Sat by Pulse Oximetry 100 Oxygen Delivery Method Lab Data Lab Results 07/28/24 17:46: Urine Color Yellow, Urine Appearance Turbid, Urine pH 6.5, Ur Specific [place] >= 1.030, Urine Protein Negative, Urine Glucose (UA) Negative, Urine Ketones Negative, Urine Blood Large, Urine Nitrate Negative, Urine Bilirubin Negative, Urine Urobilinogen 1.0, Ur Leukocyte Esterase Negative, Urine RBC 20-50, Urine WBC 3-5, Ur Squamous Epith Cells 5-10, Urine Bacteria 1+, Urine HCG, Qual Negative 07/28/24 22:27: WBC 7.8, RBC 4.93, Hgb 13.6, Hct 41.2, MCV 83.6, MCH 27.6, MCHC 33.0, RDW 13.7, Plt Count 346, MPV 10.3, Neut % (Auto) 59.0, Lymph % (Auto) 32.3, Wright % (Auto) 6.2, Eos % (Auto) 1.7, Baso % (Auto) 0.5, Neut # (Auto) 4.6, Lymph # (Auto) 2.5, Wright # (Auto) 0.5, Eos # (Auto) 0.1, Baso # (Auto) 0.0 07/28/24 22:59: Serum HCG, Qual Positive, HCG, Quant 37 H 07/28/24 22:27 Orders (Tests/Meds): ORDERS Category Date Time Status CBC w/Auto Diff [Complete Blood Count Auto Diff] Stat Lab 07/28/24 22:27 Completed HCG,Quantitative Stat Lab 07/28/24 22:59 Completed Serum [HCG Qualitative, Serum] Stat Lab 07/28/24 22:59 Completed Urinalysis and Microscopic Stat Lab 07/28/24 17:46 Completed Urine , HCG Qual. Stat Lab 07/28/24 17:46 Completed Medical Decision Narrative: 24-year-old female presenting with vaginal bleeding and concern for . She states that she has been bleeding on and off since June 22 over a month ago. States that she had multiple positive tests at home, today came in for further evaluation. History was obtained via conversation with patient. On arrival, patient hemodynamically stable, alert, [oriented x4, ][appropriate, ]GCS [15], moving all extremities spontaneously, pupils equal and reactive to light. Full physical exam performed and significant for very clinically well-appearing female no acute distress. Patient does have hirsutism and obesity. Abdominal exam is benign, nontachycardic, normotensive/hypertensive and in no acute distress. Differential includes PCOS, metrorrhagia, , ectopic , among others. Patient placed on continuous cardiac monitoring and continuous pulse ox with initial blood pressure 140/82, heart rate 89, saturation 100% on room air. Because patient no acute distress with no current symptoms, no interventions were administered. Laboratory evaluation was initiated. Labs pending at time of handoff to oncoming physician [employer] disclaimer Much of this encounter note is an electronic assessment nurse practitioner spoken language to printed text. Electronic assessment nurse practitioner of the spoken language may permit errors. Although I have reviewed the note, some errors may still exist. <Santiago Gaytan MD - Last Filed: 07/29/24 00:37> Vital Signs: 07/28/24 17:42 07/28/24 17:46 07/28/24 19:24 Temperature 97.8 F 98 F Temperature Source Temporal Artery Scan Oral Pulse Rate 103 H 89 Pulse Rate [Right] 90 Respiratory Rate 18 18 Blood Pressure 135/86 162/92 H Blood Pressure [Right Arm] 148/82 H Blood Pressure Mean [Right Arm] 104 Blood Pressure Source Automatic Cuff Blood Pressure Source [Right Arm] Automatic Cuff Blood Pressure Position Sitting Sitting Blood Pressure Position [Right Arm] Sitting 02 Sat by Pulse Oximetry 100 99 100 Oxygen Delivery Method Room Air Room Air Room Air 07/28/24 21:11 Temperature Temperature Source Pulse Rate 94 H Pulse Rate [Right] Respiratory Rate Blood Pressure 147/100 H Blood Pressure [Right Arm] Blood Pressure Mean [Right Arm] Blood Pressure Source Blood Pressure Source [Right Arm] Blood Pressure Position Blood Pressure Position [Right Arm] 02 Sat by Pulse Oximetry 100 Oxygen Delivery Method Lab Data Lab Results 07/28/24 17:46: Urine Color Yellow, Urine Appearance Turbid, Urine pH 6.5, Ur Specific [place] >= 1.030, Urine Protein Negative, Urine Glucose (UA) Negative, Urine Ketones Negative, Urine Blood Large, Urine Nitrate Negative, Urine Bilirubin Negative, Urine Urobilinogen 1.0, Ur Leukocyte Esterase Negative, Urine RBC 20-50, Urine WBC 3-5, Ur Squamous Epith Cells 5-10, Urine Bacteria 1+, Urine HCG, Qual Negative 07/28/24 22:27: WBC 7.8, RBC 4.93, Hgb 13.6, Hct 41.2, MCV 83.6, MCH 27.6, MCHC 33.0, RDW 13.7, Plt Count 346, MPV 10.3, Neut % (Auto) 59.0, Lymph % (Auto) 32.3, Wright % (Auto) 6.2, Eos % (Auto) 1.7, Baso % (Auto) 0.5, Neut # (Auto) 4.6, Lymph # (Auto) 2.5, Wright # (Auto) 0.5, Eos # (Auto) 0.1, Baso # (Auto) 0.0 07/28/24 22:59: Serum HCG, Qual Positive, HCG, Quant 37 H Orders (Tests/Meds): ORDERS Category Date Time Status CBC w/Auto Diff [Complete Blood Count Auto Diff] Stat Lab 07/28/24 22:27 Completed HCG,Quantitative Stat Lab 07/28/24 22:59 Completed Serum [HCG Qualitative, Serum] Stat Lab 07/28/24 22:59 Completed Urinalysis and Microscopic Stat Lab 07/28/24 17:46 Completed Urine , HCG Qual. Stat Lab 07/28/24 17:46 Completed Medical Decision Narrative: 24-year-old female presenting with vaginal bleeding and concern for . She states that she has been bleeding on and off since June 22 over a month ago. States that she had multiple positive tests at home, today came in for further evaluation. History was obtained via conversation with patient. On arrival, patient hemodynamically stable, alert, [oriented x4, ][appropriate, ]GCS [15], moving all extremities spontaneously, pupils equal and reactive to light. Full physical exam performed and significant for very clinically well-appearing female no acute distress. Patient does have hirsutism and obesity. Abdominal exam is benign, nontachycardic, normotensive/hypertensive and in no acute distress. Differential includes PCOS, metrorrhagia, , ectopic , among others. Patient placed on continuous cardiac monitoring and continuous pulse ox with initial blood pressure 140/82, heart rate 89, saturation 100% on room air. Because patient no acute distress with no current symptoms, no interventions were administered. Laboratory evaluation was initiated. Labs pending at time of handoff to oncoming physician [employer] disclaimer Much of this encounter note is an electronic assessment nurse practitioner spoken language to printed text. Electronic assessment nurse practitioner of the spoken language may permit errors. Although I have reviewed the note, some errors may still exist. Gaytan: Patient was resting comfortably when I assumed care. I agree with the assessment and plan from Dr. Fried. Urine test was negative, serum test was positive. Quantitative hCG was taking a while to result and patient's family was becoming impatient. Quantitative hCG resulted at 37. I reviewed patient's symptoms with her, she states she has had abnormal spotting and vaginal bleeding since mid June, she had 2 weeks of heavy bleeding similar to her period from June 29 to July 12. She has had spotting since that time. She does not know when she could have conceived. Given this and the low hCG, concern for possible early versus ectopic. With low hCG it increases my concern for possible ectopic because ectopics often do not grow at a normal rate therefore hCG does not always increase at a normal rate. I discussed this finding with the patient and recommended transvaginal ultrasound to further evaluate for ectopic or other abnormalities including the risks of missing these potential findings. She refused this citing a need to leave because her significant other at bedside is her only source of transportation and he has to leave first thing in the morning. They are unable to stay for any further workup. Patient was able to explain back to me her condition and the risks of leaving up to and including wosening of condition, severe life altering disability, or . Patient was able to provide reason for this decision and clearly express this decision. Patient has capacity to make this decision and left AGAINST MEDICAL ADVICE. JANELLE Michael present at bedside. Patient states she will either return tonight or tomorrow to check back in through the ER and have transvaginal ultrasound performed. She states she has to get her family home tonight. After patient had left I noted that her UA had resulted with RBCs, WBCs, squamous cell contamination but also with bacteria. Given patient's symptoms this is concerning for possible asymptomatic bacteriuria which could be contributing to her symptoms. Could also be due to squamous cell contamination, unclear at this time. I called the patient by phone and was able to reach her. I informed her of this finding. She reports no known antibiotic allergies. Prescription for Macrobid sent to the patient pharmacy of choice for asymptomatic bacteriuria. She was instructed on how to take this medication. She was grateful for this. She reiterated understanding by phone to immediately return if she has any new or worsening symptoms and that she knows she needs to come back for transvaginal ultrasound to soon as possible. Critical Care <Sergio Fried MD - Last Filed: 07/28/24 23:00> Critical Care Time Critical Care Time: No
[2024-07-28 22:38] LABS: Basophils % 0.5 % (0.1-2.0); Eosinophils # 0.1 K/mm3 (0.0-0.4); Eosinophils % 1.7 % (0.1-12.0); Hematocrit 41.2 % (37.0-47.0); Hemoglobin 13.6 g/dL (12.2-16.2); Lymphocytes # 2.5 K/mm3 (0.7-4.5); Lymphocytes % 32.3 % (10-50); Mean Corpuscular Hemoglobin 27.6 pg (27.0-31.2); Mean Corpuscular Volume 83.6 fl (81-99); Mean Platelet Volume 10.3 fl (7.4-10.4); Monocytes # 0.5 K/mm3 (0.1-1.0); Monocytes % 6.2 % (1.7-9.3); Neutrophils # 4.6 K/mm3 (1.8-7.8); Platelet Count 346 K/mm3 (142-424); Red Blood Count 4.93 M/mm3 (4.20-5.40); Red Cell Distribution Width 13.7 % (11.5-17.5); White Blood Count 7.8 K/mm3 (4.8-10.8)
[2024-07-28 23:21] LABS: HCG Qualitative, Serum Positive (Negative)
[2024-07-28 23:47] LABS: HCG,Quantitative 37 mIU/ml (0-5.42)
[2024-07-29 00:28] VITALS: BP 128/74; PULSE 92; RESP 18; TEMP 37.2; O2SAT 98
== END 2024-07-29 00:30 | disposition left against medical advice (07) ==
PROVIDERS: Emergency Provider Emergency Medicine; PCP Family Medicine
DX: R82.71 Bacteriuria (principal); N93.9 Abnormal uterine and vaginal bleeding, unspecified; Z32.01 Encounter for pregnancy test, result positive
CPT/HCPCS: 81001; 81025; 84702; 84703; 85025; 99283

== ENCOUNTER 2024-07-29 18:56 | Emergency (ER) | payer SELFPAY ==
--- NOTE | 2024-07-29 19:06 | US_ITS ---
PROCEDURE INFORMATION: Exam: US , Transvaginal and US Duplex Artery or Vein, Ovaries, Limited Exam date and time: 07/29/2024 7:26 PM Age: 24 years old Clinical indication: Other: Pelvic pain and spotting; Gestational age or lmp: 06/17/24; ; Additional info: Bleeding spotting abdominal cramping positive hcg -- PT unsure of lmp -- states she has been bleeding since 06/17/24 -- pos hcg on 07/28/24 LABS AND CLINICAL REPORTS: Last menstrual period start date: 06/17/2024 Gestational age (Established): 6 w 0 d Estimated due date (Established): 03/24/2025 TECHNIQUE: Imaging protocol: Real-time transvaginal obstetrical ultrasound of the maternal pelvis and a first trimester with image documentation. Transvaginal imaging was used for better evaluation of the fetus, adnexa, and/or cervix. Real-time duplex ultrasound scan of the arterial or venous flow of the ovaries with B-mode, color Doppler flow and spectral waveform analysis, Limited Duplex. Duplex exam was performed to evaluate for torsion and other vascular conditions. COMPARISON: US TRANSVAGINAL 01/23/2020 10:18 AM FINDINGS: GESTATION: Gestation: Nonspecific echogenic focus within the endometrium without cystic structure to suggest gestational sac. No gestational sac seen within the uterus heart rate: Placenta: Unremarkable. No subchorionic bleed. Amniotic fluid (Qualitative): Amniotic fluid is normal for gestational age. MATERNAL: Cervix: Anechoic cystic structure associated with the cervix measures 9 mm compatible with nabothian cyst. Right ovary/adnexa: Right ovary measures 3.03 cm x 1.68 cm x 2.28 cm. Right ovarian volume is 6.08 mL. The right ovary has normal color Doppler echoes. The right ovary has normal arterial spectral waveforms. Left ovary/adnexa: Left ovary measures 2.93 cm x 1.79 cm x 1.73 cm. Left ovarian volume is 4.75 mL. The left ovary has normal color Doppler echoes. The left ovary has normal arterial spectral waveforms. Intraperitoneal space: No intraperitoneal free fluid. IMPRESSION: 1. Nonspecific echogenic focus within the endometrium without cystic structure to suggest gestational sac. 2. No ultrasound evidence of torsion.
--- NOTE | 2024-07-29 19:07 | ED_ITS ---
<Statement entered by Navin Spain MD - 07/29/24 23:51> I was consulted by the LAUREN, and we discussed the complexity of the problems being addressed. I approved the treatment and management plan for this patient's care in the emergency department, thus performing a substantive portion of the medical decision making. Navin Spain MD, HERLINDA, FACEP Discharge Plan Disposition Patient Disposition: Home, Self-Care Condition: Good Prescriptions Prescriptions: No Action nitrofurantoin monohyd/m-cryst [Macrobid] 100 mg capsule 100 mg PO BID 7 Days Qty: 14 0RF Rx Instructions: must administer with a meal/food Referrals Follow up/Referrals: Jason Griffith MD [Primary Care Provider] - See instructions Activity Restrictions/Add. Instructions Additional Instructions/Restrictions: As was discussed you need to follow-up closely within 48 hours with your [facility]. If you have any continued new or worsening signs or symptoms return to the ER as needed. Clinical Impressions Clinical Impression: Vaginal bleeding, Positive blood test Print Language Print Language: Tanzanian Discharge ED Provider: Navin Spain General Adult HPI General Chief complaint: Vaginal Bleeding Stated complaint: Abd pain, with bleeding Time Seen by Provider: 07/29/24 19:07 History of Present Illness HPI narrative: Patient presents for evaluation of vaginal bleeding. Patient was seen last night but unfortunately had to leave AGAINST MEDICAL ADVICE before her workup was complete. Patient reports that she has been having vaginal bleeding since mid June. She had multiple positive home tests. RICHARD last night showed that she had a negative urine test however her quantitative hCG was positive at 37. The physician last night wanted to order a transvaginal ultrasound unfortunately patient could not stay and left AGAINST MEDICAL ADVICE. She presents for completion of her evaluation. Patient reports no new changes since she was last seen. Related Data Previous Rx's ?Medication ?Instructions ?Recorded nitrofurantoin 100 mg PO BID 7 days #14 caps 07/29/24 monohydrate/macrocrystals 100 mg capsule (Macrobid) Allergies Allergy/AdvReac Type Severity Reaction Status Date / Time No Known Allergies Allergy Verified 11/14/22 11:49 [facility] Disclaimer: The information contained in this section may have been updated after the patient was seen, as this information can be updated by other users. Medical History Asthma Social History Smoking Status: Never smoker second hand exposure: No alcohol intake: never current occupational status: employed Travel in the last 8 weeks: None household members: family housing: house caffeine: Yes Have you lived/traveled outside [place] in past 30 days?: No Contact w/someone who lives/traveled outside [place] past 30 days?: No Exposure to someone with infectious disease in past 14 days?: No Do you have a fever (greater than 100.4 F or 38 C)?: No Have you tested positive for COVID-19: No Exposed to someone with COVID-19 in past 14 days?: No Do you have a sore throat?: No Do you have a cough?: No Do you have any weakness?: No Do you have any diarrhea?: No Are you experiencing any unusual bleeding?: No Do you have any muscle aches/pain?: No Do you have any abdominal pain?: Yes Are you experiencing loss of taste or smell?: No Other Medical History Have you received the Flu Vaccine for this season: No Have you received the Pneumonia Vaccine: No ROS Obtained: Yes Systems reviewed as appropriate & no additional complaints except as documented Physical Exam General General appearance: alert and in no apparent distress Respiratory Respiratory exam: Present normal lung sounds bilaterally Cardiovascular Cardiovascular exam: Present regular rate Neurological Exam Neurological exam: Present alert and oriented X3 Medical Decision Making Medical Records Medical records reviewed: Yes I reviewed the patient's medical records. Screening: Per USPSTF and CDC recommendations, given the prevalence of disease in our region, it is our hospital?s policy to screen for HIV and viral Hepatitis for all patients aged 18 and over and those with ongoing risk factors. [place] Inquiry Pt receiving controlled substance: No Vital Signs: 07/29/24 19:16 Temperature 99.5 F Temperature Source Oral Pulse Rate [Left Radial] 99 H Respiratory Rate 18 Blood Pressure [Right Arm] 134/86 Blood Pressure Mean [Right Arm] 102 Blood Pressure Source [Right Arm] Automatic Cuff Blood Pressure Position [Right Arm] Sitting 02 Sat by Pulse Oximetry 99 Oxygen Delivery Method Room Air Lab Data Lab results reviewed: Yes I reviewed the patient's lab results. Lab Results 07/29/24 19:33: Blood Type O Negative, Antibody Screen Negative Orders (Tests/Meds): ED MEDICATIONS Discontinued Medications Generic Name Dose Route Start Last Admin Trade Name Jeni PRN Reason Stop Dose Admin Rho Immune Globulin 300 mcg 07/29/24 20:36 Rho(D) Immune Globulin 1,500 Unit (300mcg) Syringe IM 07/29/24 20:37 ONCE ONE ORDERS Category Date Time Status Type and Screen Stat BBK 07/29/24 19:33 Completed US transvaginal Stat Exams 07/29/24 19:06 Completed Medical Decision Narrative: In summary patient is a 24-year-old female who presents to the emergency department for evaluation of vaginal bleeding and positive hCG. Patient is hemodynamically stable upon arrival, afebrile. Physical exam shows clear breath sounds no adventitious sounds normal heart rate with normal sinus rhythm on the bedside monitor at 99 abdomen soft without rebound or guarding or rigidity normal bowel sounds.. Differential diagnosis includes ectopic versus missed versus dysfunctional uterine bleeding etc. Initial workup will be conducted with type and screen and transvaginal ultrasound.. Initial interventions were considered however patient currently has no complaints thus deferred for now. Initial workup reviewed by me and patient is actually O+ so she will be administered RhoGAM. Transvaginal ultrasound showed a nonspecific echogenic focus within the endometrium without cystic structure to suggest gestational sac and no ultrasound evidence of torsion. Given this we are not able to rule out ectopic and patient will need close follow-up with her [facility] [facility] [employer]. This instruction was given to the patient with strict return precautions. Patient has verbalized understanding and agreement. Critical Care Critical Care Time Critical Care Time: No
[2024-07-29 19:16] VITALS: BP 134/86; PULSE 99; RESP 18; TEMP 37.5; O2SAT 99; BMI 37.2
[2024-07-29] MEDS: RHO(D) IMMUNE GLOBULIN 1,500 UNIT (300MCG) SYRINGE 300 MCG IM (21:34)
[2024-07-29 21:40] VITALS: BP 128/74; PULSE 84; RESP 20; TEMP 37.2; O2SAT 99
== END 2024-07-29 21:42 | disposition home or self-care (01) ==
PROVIDERS: Emergency Provider Student in an Organized Health Care Education/Training Program; PCP Family Medicine
DX: N93.9 Abnormal uterine and vaginal bleeding, unspecified (principal); Z32.01 Encounter for pregnancy test, result positive
CPT/HCPCS: 36415; 76830; 86850; 99284; J2790

== ENCOUNTER 2024-09-19 22:44 | Outpatient (CLI) | payer OTHER, SELFPAY ==
[2024-09-19 20:28] LABS: Coronavirus 19, PCR Not Detected (NotDetected); Influenza A, PCR Not Detected (NotDetected); Influenza B, PCR Not Detected (NotDetected); Respiratory Syncytial Virus Not Detected (NotDetected)
[2024-09-19 22:52] LABS: Human Rhinovirus Detected (NotDetected)
== END 2024-09-19 23:59 | disposition home or self-care (01) ==
LOC: LAB.DROPOF 22:45
PROVIDERS: PCP Nurse Practitioner; Visit Provider Nurse Practitioner
DX: B34.9 Viral infection, unspecified (principal); J02.9 Acute pharyngitis, unspecified
CPT/HCPCS: 87631